=== PATIENT | male | born 1970 | race Caucasian/White ===

== ENCOUNTER 2020-10-13 18:34 | Inpatient (IN) | payer OTHER, SELFPAY ==
[~2020-10-13] VITALS: Ht 165.1 cm; Wt 69.9 kg
[2020-10-13 19:14] VITALS: BP 124/62
[2020-10-13] MEDS ORDERED: NACL 0.9% 1,000 ML IV SCH (20:20)
[2020-10-13] MEDS ORDERED: VANCOMYCIN 1,000 MG in DEXTROSE 5% 250 ML IV ONE (20:20)
[2020-10-13 20:48] LABS: HEMATOCRIT 37.2 % (36-52); HEMOGLOBIN 12.4 g/dL (12.0-18.0); MEAN CORPUSCULAR HEMOGLOBIN 28 pg (27-31); MEAN CORPUSCULAR HGB CONC 33 g/dL (33-37); MEAN CORPUSCULAR VOLUME 83.4 fL (80-94); PLATELET COUNT (AUTO) 464 K/uL (140-450); RED BLOOD CELL COUNT(AUTO) 4.46 MIL/uL (4.20-6.10); RED CELL DISTRIBUTION WIDTH 13.1 % (11.6-13.7)
[2020-10-13] MEDS ORDERED: VANCOMYCIN 1,000 MG VIAL ONE (20:57)
[2020-10-13 21:00] LABS: PROTHROMBIN TIME 12.2 secs (10.8-13.4)
[2020-10-13 21:02] LABS: ALBUMIN 1.8 g/dL (3.4-5.0); ANION GAP 9.9 (8-16); CARBON DIOXIDE 28.2 mmol/L (21-32); CREATININE 1.5 mg/dL (0.6-1.3); POTASSIUM 5.1 mmol/L (3.5-5.1); TOTAL BILIRUBIN 0.8 mg/dL (0.0-1.0)
[2020-10-13 21:12] LABS: LYMPHOCYTES % (MANUAL) 3 % (20-46)
[2020-10-13] MEDS ORDERED: PIPERACILLIN/TAZOBACTAM 3.375 GM in DEXTROSE 5% 50 ML IV ONE (21:25)
[2020-10-13] MEDS ORDERED: INSULIN REGULAR, HUMAN 100 UNIT/ML VIAL SUBQ ONE (21:25)
[2020-10-13] MEDS ORDERED: PIPERACILLIN/TAZOBACTAM 3.375 GM VIAL IV ONE (21:47)
[2020-10-13] MEDS: DEXT 5% / NACL 0.45% 1,000 ML IV SCH (23:13)
[2020-10-13] MEDS: MORPHINE SULFATE 2 MG/ML SYR IVP PRN (23:15)
[2020-10-14 00:09] LABS: APPEARANCE,URINE CLEAR (CLEAR); BILIRUBIN,URINE NEGATIVE (NEGATIVE); BLOOD, URINE TRACE-I (NEGATIVE); COLOR,URINE YELLOW (YELLOW); LEUKOCYTE ESTERASE ,URINE NEGATIVE (NEGATIVE); NITRITE, URINE NEGATIVE (NEGATIVE); UGLUCOSE 3+ (NEGATIVE)
[2020-10-14 00:24] LABS: RBC,URINE 0-5 /HPF (0-5); WBC,URINE 0-5 /HPF (0-5)
[2020-10-14 00:30] VITALS: BP 140/79
[2020-10-14] MEDS ORDERED: ONDANSETRON 4 MG/2 ML VIAL IVP PRN ×2 (00:55→08:15)
[2020-10-14] MEDS ORDERED: ACETAMINOPHEN 325 MG TAB PO PRN (01:15)
[2020-10-14] MEDS ORDERED: ZOLPIDEM 5 MG TAB PO PRN (01:15)
[2020-10-14 04:00] VITALS: BP 141/75
[2020-10-14] MEDS ORDERED: DEXTROSE 50% 50 ML SYR IVP PRN (06:45)
[2020-10-14] MEDS: BLOOD GLUCOSE MONITORING 1 DEV DEV FS SCH ×4 (07:31→20:29)
[2020-10-14] MEDS: INSULIN LISPRO SLIDING SCALE 100 UNITS/ML VIAL SUBQ PRN ×4 (07:32→20:42)
[2020-10-14 08:00] VITALS: BP 128/74
[2020-10-14] MEDS ORDERED: LORazepam 2 MG/ML VIAL IM/IVP PRN (08:15)
[2020-10-14] MEDS ORDERED: DOCUSATE SODIUM 100 MG GELCAP PO PRN (08:15)
[2020-10-14] MEDS ORDERED: VANCOMYCIN PER PHARMACY MC PRN (08:20)
[2020-10-14] MEDS: VANCOMYCIN 750 MG in DEXTROSE 5% 250 ML IV SCH ×2 (09:00→20:23)
[2020-10-14] MEDS: DEXT 5% / NACL 0.45% 1,000 ML IV SCH (09:12)
[2020-10-14] MEDS: NACL 0.9% 1,000 ML IV SCH ×2 (10:23→20:00)
[2020-10-14 10:24] LABS: HEMATOCRIT 38.1 % (36-52); HEMOGLOBIN 12.7 g/dL (12.0-18.0); MEAN CORPUSCULAR HEMOGLOBIN 28 pg (27-31); MEAN CORPUSCULAR HGB CONC 33 g/dL (33-37); MEAN CORPUSCULAR VOLUME 82.5 fL (80-94); PLATELET COUNT (AUTO) 449 K/uL (140-450); RED BLOOD CELL COUNT(AUTO) 4.62 MIL/uL (4.20-6.10)
[2020-10-14 10:32] LABS: PROTHROMBIN TIME 12.1 secs (10.8-13.4)
[2020-10-14 10:39] LABS: ALBUMIN 1.6 g/dL (3.4-5.0); ANION GAP 13.1 (8-16); CARBON DIOXIDE 25.8 mmol/L (21-32); CREATININE 1.2 mg/dL (0.6-1.3); POTASSIUM 3.9 mmol/L (3.5-5.1); TOTAL BILIRUBIN 1.2 mg/dL (0.0-1.0)
[2020-10-14 10:46] LABS: CHOL/HDL RATIO 3.3 (1-4.5); FREE T4 (FREE THYROXINE) 1.43 ng/dL (0.76-1.46); MAGNESIUM 2.1 mg/dL (1.8-2.4); THYROID STIMULATING HORMONE 0.68 uIU/mL (0.34-3.74)
[2020-10-14 11:16] LABS: LYMPHOCYTES % (MANUAL) 1 % (20-46); MONOCYTES % (MANUAL) 2 % (5-12)
[2020-10-14 12:00] VITALS: BP 102/56
[2020-10-14] MEDS: PIPERACILLIN/TAZOBACTAM 3.375 GM in DEXTROSE 5% 50 ML IV SCH ×2 (12:42→21:53)
[2020-10-14] MEDS: ACETAMINOPHEN 325 MG TAB PO PRN ×2 (12:55→23:42)
[2020-10-14 15:58] LABS: ANION GAP 7.8 (8-16); CARBON DIOXIDE 25.1 mmol/L (21-32); POTASSIUM 3.9 mmol/L (3.5-5.1)
[2020-10-14 16:00] VITALS: BP 121/67
[2020-10-14 20:00] VITALS: BP 129/65
[2020-10-14] MEDS: ZOLPIDEM 5 MG TAB PO PRN (23:42)
[2020-10-15] VITALS: BP 144/80
[2020-10-15] MEDS: NACL 0.9% 1,000 ML IV SCH ×2 (00:39→16:02)
[2020-10-15 04:00] VITALS: BP 134/70
[2020-10-15] MEDS: PIPERACILLIN/TAZOBACTAM 3.375 GM in DEXTROSE 5% 50 ML IV SCH ×3 (04:56→21:14)
[2020-10-15 05:43] LABS: HEMATOCRIT 34.1 % (36-52); HEMOGLOBIN 11.4 g/dL (12.0-18.0); MEAN CORPUSCULAR HEMOGLOBIN 28 pg (27-31); MEAN CORPUSCULAR HGB CONC 33 g/dL (33-37); MEAN CORPUSCULAR VOLUME 83.6 fL (80-94); PLATELET COUNT (AUTO) 455 K/uL (140-450); RED BLOOD CELL COUNT(AUTO) 4.08 MIL/uL (4.20-6.10); RED CELL DISTRIBUTION WIDTH 13.3 % (11.6-13.7)
[2020-10-15 06:01] LABS: CREATININE 1.1 mg/dL (0.6-1.3); POTASSIUM 4.3 mmol/L (3.5-5.1)
[2020-10-15] MEDS: BLOOD GLUCOSE MONITORING 1 DEV DEV FS SCH ×4 (06:11→21:14)
[2020-10-15 06:13] LABS: MAGNESIUM 1.9 mg/dL (1.8-2.4); PHOSPHORUS 2.6 mg/dL (2.5-4.9)
[2020-10-15] MEDS: INSULIN LISPRO SLIDING SCALE 100 UNITS/ML VIAL SUBQ PRN ×4 (06:21→21:31)
[2020-10-15 06:46] LABS: CARBON DIOXIDE 23.9 mmol/L (21-32)
[2020-10-15 06:50] LABS: ANION GAP 11.4 (8-16)
[2020-10-15 08:00] VITALS: BP 103/48
[2020-10-15] MEDS: VANCOMYCIN 750 MG in DEXTROSE 5% 250 ML IV SCH ×3 (08:17→21:18)
[2020-10-15 08:32] LABS: WHITE BLOOD COUNT (AUTO) 27.8 K/uL (4.8-10.8)
[2020-10-15 08:33] LABS: LYMPHOCYTES % (MANUAL) 4 % (20-46); MONOCYTES % (MANUAL) 5 % (5-12)
[2020-10-15] MEDS ORDERED: HYDROGEN PEROXIDE 3% 240 ML BTL TP ONE (08:59)
[2020-10-15] MEDS ORDERED: SEVOFLURANE 250 ML BTL INH ONE (09:10)
[2020-10-15 09:18] LABS: BARBITURATE, URINE NEGATIVE ng/ml (NEG <=200); BENZODIAZEPINE, URINE NEGATIVE ng/mL (NEG <=200); CANNABINOID, URINE NEGATIVE ng/mL (NEG <=50); COCAINE, URINE NEGATIVE ng/mL (NEG <=300); OPIATE, URINE POSITIVE ng/mL (NEG <=2000); PHENCYCLIDINE SCREEN,URINE NEGATIVE ng/mL (NEG <=25)
[2020-10-15] MEDS ORDERED: fentaNYL citrate 0.05 MG/ML VIAL ONE (09:21)
[2020-10-15] MEDS ORDERED: MIDAZOLAM 2 MG/2 ML VIAL ONE (09:21)
[2020-10-15] MEDS ORDERED: PROPOFOL 200 MG/20 ML VIAL IV ONE (09:30)
[2020-10-15] MEDS ORDERED: DEXAMETHASONE 4 MG/ML VIAL ONE (09:32)
[2020-10-15] MEDS ORDERED: ONDANSETRON 4 MG/2 ML VIAL ONE (09:32)
[2020-10-15] MEDS ORDERED: MEPERIDINE 50 MG/ML SYR ONE (09:33)
[2020-10-15] MEDS ORDERED: BLOOD GLUCOSE MONITORING 1 DEV DEV FS SCH (09:50)
[2020-10-15] MEDS: LACTATED RINGERS 1,000 ML IV SCH ×2 (09:50→18:10)
[2020-10-15] MEDS ORDERED: HYDROmorphone 1 MG/ML AMP IVP PRN (09:50)
[2020-10-15] MEDS ORDERED: ONDANSETRON 4 MG/2 ML VIAL IVP PRN (09:50)
[2020-10-15] MEDS ORDERED: diphenhydrAMINE 50 MG/ML VIAL IVP PRN (09:50)
[2020-10-15] MEDS ORDERED: MEPERIDINE 25 MG/ML SYR IVP PRN (09:50)
[2020-10-15 12:00] VITALS: BP 135/78
[2020-10-15 13:05] LABS: BASOPHILS % (AUTO) 0.2 % (0.0-2.0); EOSINOPHILS % (AUTO) 0.1 % (0.0-4.0); HEMATOCRIT 34.8 % (36-52); HEMOGLOBIN 11.5 g/dL (12.0-18.0); LYMPHOCYTES # (AUTO) 0.4 K/uL (2.0-11.5); LYMPHOCYTES % (AUTO) 1.6 % (20.5-51.1); MEAN CORPUSCULAR HEMOGLOBIN 28 pg (27-31); MEAN CORPUSCULAR HGB CONC 33 g/dL (33-37); MEAN CORPUSCULAR VOLUME 83.4 fL (80-94); MONOCYTES # (AUTO) 0.5 K/uL (0.8-1.0); NEUTROPHILS # (AUTO) 24.8 K/uL (1.8-7.7); NEUTROPHILS % (AUTO) 96.1 % (42.2-75.2); PLATELET COUNT (AUTO) 455 K/uL (140-450); RED BLOOD CELL COUNT(AUTO) 4.17 MIL/uL (4.20-6.10); RED CELL DISTRIBUTION WIDTH 13.6 % (11.6-13.7)
[2020-10-15 13:11] LABS: ANION GAP 10.3 (8-16); CARBON DIOXIDE 25.1 mmol/L (21-32); POTASSIUM 4.4 mmol/L (3.5-5.1)
[2020-10-15 13:26] LABS: WHITE BLOOD COUNT (AUTO) 25.8 K/uL (4.8-10.8)
[2020-10-15 16:00] VITALS: BP 135/84
[2020-10-15 17:03] LABS: URINE TOTAL PROTEIN 210.1 mg/dL (0-12)
[2020-10-15 21:00] VITALS: BP 131/73
[2020-10-15] MEDS: HYDROcodone/APAP 5/325 MG 1 TAB TAB PO PRN (21:37)
[2020-10-15] MEDS: ZOLPIDEM 5 MG TAB PO PRN (23:12)
[2020-10-16 00:30] VITALS: BP 124/68
[2020-10-16] MEDS: NACL 0.9% 1,000 ML IV SCH ×3 (01:35→22:00)
[2020-10-16] MEDS: LACTATED RINGERS 1,000 ML IV SCH (01:36)
[2020-10-16 04:30] VITALS: BP 130/72
[2020-10-16] MEDS: PIPERACILLIN/TAZOBACTAM 3.375 GM in DEXTROSE 5% 50 ML IV SCH ×2 (05:43→12:20)
[2020-10-16 07:29] LABS: BASOPHILS # (AUTO) 0.1 K/uL (0.00-0.22); BASOPHILS % (AUTO) 0.3 % (0.0-2.0); HEMATOCRIT 35.5 % (36-52); HEMOGLOBIN 11.7 g/dL (12.0-18.0); LYMPHOCYTES # (AUTO) 1.2 K/uL (2.0-11.5); MEAN CORPUSCULAR HEMOGLOBIN 28 pg (27-31); MEAN CORPUSCULAR HGB CONC 33 g/dL (33-37); MEAN CORPUSCULAR VOLUME 84.8 fL (80-94); MONOCYTES % (AUTO) 4.7 % (1.7-9.3); NEUTROPHILS # (AUTO) 18.4 K/uL (1.8-7.7); PLATELET COUNT (AUTO) 448 K/uL (140-450); RED BLOOD CELL COUNT(AUTO) 4.18 MIL/uL (4.20-6.10); RED CELL DISTRIBUTION WIDTH 13.3 % (11.6-13.7); WHITE BLOOD COUNT (AUTO) 20.6 K/uL (4.8-10.8)
[2020-10-16 07:44] LABS: ANION GAP 11.7 (8-16); CARBON DIOXIDE 22.9 mmol/L (21-32); POTASSIUM 4.6 mmol/L (3.5-5.1)
[2020-10-16] MEDS: BLOOD GLUCOSE MONITORING 1 DEV DEV FS SCH ×4 (07:47→21:53)
[2020-10-16] MEDS: INSULIN LISPRO SLIDING SCALE 100 UNITS/ML VIAL SUBQ PRN ×4 (07:51→21:57)
[2020-10-16 07:54] LABS: MAGNESIUM 1.9 mg/dL (1.8-2.4); PHOSPHORUS 2.6 mg/dL (2.5-4.9)
[2020-10-16 08:00] VITALS: BP 127/76
[2020-10-16] MEDS: VANCOMYCIN 750 MG in DEXTROSE 5% 250 ML IV SCH (09:22)
[2020-10-16] MEDS: MORPHINE SULFATE 2 MG/ML SYR IVP PRN ×2 (10:50→15:01)
[2020-10-16 16:00] VITALS: BP 129/77
[2020-10-16] MEDS ORDERED: VANCOMYCIN 1,000 MG in DEXTROSE 5% 250 ML IV SCH (21:00)
[2020-10-16] MEDS: INSULIN LANTUS 100 UNITS/ML 10 ML VIAL SUBQ SCH (21:59)
[2020-10-16] MEDS: HYDROcodone/APAP 5/325 MG 1 TAB TAB PO PRN (23:20)
[2020-10-16] MEDS: ZOLPIDEM 5 MG TAB PO PRN (23:21)
[2020-10-16] MEDS: BENZONATATE 100 MG CAPLF PO PRN (23:21)
[2020-10-17] MEDS: PIPERACILLIN/TAZOBACTAM 3.375 GM in DEXTROSE 5% 50 ML IV SCH ×3 (03:41→13:00)
[2020-10-17] MEDS: VANCOMYCIN 1,000 MG in NACL 0.9% 250 ML IV SCH ×2 (03:46→09:18)
[2020-10-17 04:00] VITALS: BP 130/76
[2020-10-17 05:55] LABS: BASOPHILS # (AUTO) 0.1 K/uL (0.00-0.22); BASOPHILS % (AUTO) 0.7 % (0.0-2.0); EOSINOPHILS # (AUTO) 0.1 K/uL (0-0.4); EOSINOPHILS % (AUTO) 0.8 % (0.0-4.0); HEMATOCRIT 32.2 % (36-52); HEMOGLOBIN 10.8 g/dL (12.0-18.0); LYMPHOCYTES # (AUTO) 1.7 K/uL (2.0-11.5); LYMPHOCYTES % (AUTO) 13.1 % (20.5-51.1); MEAN CORPUSCULAR HEMOGLOBIN 28 pg (27-31); MEAN CORPUSCULAR HGB CONC 33 g/dL (33-37); MEAN CORPUSCULAR VOLUME 83.4 fL (80-94); MONOCYTES # (AUTO) 1.2 K/uL (0.8-1.0); MONOCYTES % (AUTO) 9.1 % (1.7-9.3); NEUTROPHILS # (AUTO) 10.2 K/uL (1.8-7.7); NEUTROPHILS % (AUTO) 76.3 % (42.2-75.2); PLATELET COUNT (AUTO) 456 K/uL (140-450); RED BLOOD CELL COUNT(AUTO) 3.86 MIL/uL (4.20-6.10); RED CELL DISTRIBUTION WIDTH 13.1 % (11.6-13.7); WHITE BLOOD COUNT (AUTO) 13.4 K/uL (4.8-10.8)
[2020-10-17 06:20] LABS: ANION GAP 10.4 (8-16); CARBON DIOXIDE 23.7 mmol/L (21-32); CREATININE 0.9 mg/dL (0.6-1.3); POTASSIUM 4.1 mmol/L (3.5-5.1)
[2020-10-17] MEDS: INSULIN LISPRO SLIDING SCALE 100 UNITS/ML VIAL SUBQ PRN ×3 (07:25→17:40)
[2020-10-17] MEDS: BLOOD GLUCOSE MONITORING 1 DEV DEV FS SCH ×4 (07:25→21:00)
[2020-10-17 08:00] VITALS: BP 131/78
[2020-10-17] MEDS: NACL 0.9% 1,000 ML IV SCH ×2 (08:00→17:41)
[2020-10-17] MEDS: BENZONATATE 100 MG CAPLF PO PRN (09:21)
[2020-10-17] MEDS: HYDROcodone/APAP 5/325 MG 1 TAB TAB PO PRN (13:09)
[2020-10-17 20:00] VITALS: BP 129/69
[2020-10-17] MEDS: INSULIN LANTUS 100 UNITS/ML 10 ML VIAL SUBQ SCH (21:00)
[2020-10-17] MEDS: ZOLPIDEM 5 MG TAB PO PRN (21:48)
[2020-10-17] MEDS: MORPHINE SULFATE 2 MG/ML SYR IVP PRN (21:51)
[2020-10-18] MEDS: BLOOD GLUCOSE MONITORING 1 DEV DEV FS SCH ×4 (00:33→21:01)
[2020-10-18] MEDS: NACL 0.9% 1,000 ML IV SCH ×2 (01:35→14:00)
[2020-10-18] MEDS: MORPHINE SULFATE 2 MG/ML SYR IVP PRN (04:48)
[2020-10-18 05:08] VITALS: BP 131/74
[2020-10-18] MEDS: PIPERACILLIN/TAZOBACTAM 3.375 GM in DEXTROSE 5% 50 ML IV SCH ×6 (06:21→23:14)
[2020-10-18 08:00] VITALS: BP 142/75
[2020-10-18 08:43] LABS: BASOPHILS # (AUTO) 0.1 K/uL (0.00-0.22); EOSINOPHILS # (AUTO) 0.1 K/uL (0-0.4); EOSINOPHILS % (AUTO) 1.1 % (0.0-4.0); HEMATOCRIT 32.1 % (36-52); HEMOGLOBIN 10.8 g/dL (12.0-18.0); LYMPHOCYTES # (AUTO) 1.6 K/uL (2.0-11.5); LYMPHOCYTES % (AUTO) 12.4 % (20.5-51.1); MEAN CORPUSCULAR HEMOGLOBIN 28 pg (27-31); MEAN CORPUSCULAR HGB CONC 34 g/dL (33-37); MONOCYTES # (AUTO) 1.1 K/uL (0.8-1.0); MONOCYTES % (AUTO) 8.5 % (1.7-9.3); NEUTROPHILS # (AUTO) 9.8 K/uL (1.8-7.7); PLATELET COUNT (AUTO) 454 K/uL (140-450); RED BLOOD CELL COUNT(AUTO) 3.87 MIL/uL (4.20-6.10); RED CELL DISTRIBUTION WIDTH 13.2 % (11.6-13.7); WHITE BLOOD COUNT (AUTO) 12.7 K/uL (4.8-10.8)
[2020-10-18 08:46] LABS: ANION GAP 10.4 (8-16); CARBON DIOXIDE 25.3 mmol/L (21-32); CREATININE 0.8 mg/dL (0.6-1.3); POTASSIUM 3.7 mmol/L (3.5-5.1)
[2020-10-18] MEDS: guaiFENesin DM 200/20 MG-10 ML 10 ML UDC PO PRN ×2 (12:22→20:58)
[2020-10-18] MEDS: INSULIN LISPRO SLIDING SCALE 100 UNITS/ML VIAL SUBQ PRN (12:40)
[2020-10-18 20:00] VITALS: BP 142/72
[2020-10-18] MEDS: HYDROcodone/APAP 5/325 MG 1 TAB TAB PO PRN (20:58)
[2020-10-18] MEDS: INSULIN LANTUS 100 UNITS/ML 10 ML VIAL SUBQ SCH (21:00)
[2020-10-18] MEDS: ZOLPIDEM 5 MG TAB PO PRN (23:14)
[2020-10-19 04:00] VITALS: BP 155/82
[2020-10-19] MEDS: NACL 0.9% 1,000 ML IV SCH ×4 (04:00→16:41)
[2020-10-19] MEDS: PIPERACILLIN/TAZOBACTAM 3.375 GM in DEXTROSE 5% 50 ML IV SCH ×4 (06:07→23:48)
[2020-10-19] MEDS: BLOOD GLUCOSE MONITORING 1 DEV DEV FS SCH ×4 (06:36→20:39)
[2020-10-19 06:41] LABS: BASOPHILS # (AUTO) 0.2 K/uL (0.00-0.22); BASOPHILS % (AUTO) 1.2 % (0.0-2.0); EOSINOPHILS # (AUTO) 0.2 K/uL (0-0.4); EOSINOPHILS % (AUTO) 1.4 % (0.0-4.0); HEMATOCRIT 31.5 % (36-52); HEMOGLOBIN 10.8 g/dL (12.0-18.0); LYMPHOCYTES # (AUTO) 1.5 K/uL (2.0-11.5); LYMPHOCYTES % (AUTO) 11.5 % (20.5-51.1); MEAN CORPUSCULAR HEMOGLOBIN 28 pg (27-31); MEAN CORPUSCULAR HGB CONC 34 g/dL (33-37); MEAN CORPUSCULAR VOLUME 82.1 fL (80-94); MONOCYTES # (AUTO) 0.9 K/uL (0.8-1.0); MONOCYTES % (AUTO) 6.8 % (1.7-9.3); NEUTROPHILS % (AUTO) 79.1 % (42.2-75.2); PLATELET COUNT (AUTO) 468 K/uL (140-450); RED BLOOD CELL COUNT(AUTO) 3.83 MIL/uL (4.20-6.10); RED CELL DISTRIBUTION WIDTH 13.1 % (11.6-13.7); WHITE BLOOD COUNT (AUTO) 12.7 K/uL (4.8-10.8)
[2020-10-19 06:58] LABS: ANION GAP 11.9 (8-16); CARBON DIOXIDE 24.9 mmol/L (21-32); CREATININE 0.9 mg/dL (0.6-1.3); POTASSIUM 3.8 mmol/L (3.5-5.1)
[2020-10-19 08:00] VITALS: BP 146/75
[2020-10-19] MEDS: guaiFENesin DM 200/20 MG-10 ML 10 ML UDC PO PRN ×3 (10:28→22:51)
[2020-10-19] MEDS: INSULIN LISPRO SLIDING SCALE 100 UNITS/ML VIAL SUBQ PRN ×3 (12:59→20:38)
[2020-10-19] MEDS: GAUZE TP SCH (13:00)
[2020-10-19 16:00] VITALS: BP 146/75
[2020-10-19] MEDS: HYDROcodone/APAP 5/325 MG 1 TAB TAB PO PRN ×2 (16:32→22:48)
[2020-10-19] MEDS: ACETAMINOPHEN 325 MG TAB PO PRN (18:25)
[2020-10-19 20:00] VITALS: BP 119/68
[2020-10-19] MEDS: INSULIN LANTUS 100 UNITS/ML 10 ML VIAL SUBQ SCH (20:38)
[2020-10-19] MEDS: ZOLPIDEM 5 MG TAB PO PRN (22:49)
[2020-10-20 04:00] VITALS: BP 142/78
[2020-10-20] MEDS: PIPERACILLIN/TAZOBACTAM 3.375 GM in DEXTROSE 5% 50 ML IV SCH ×3 (05:29→17:38)
[2020-10-20] MEDS: BLOOD GLUCOSE MONITORING 1 DEV DEV FS SCH ×4 (05:42→20:03)
[2020-10-20] MEDS: NACL 0.9% 1,000 ML IV SCH ×2 (05:43→16:00)
[2020-10-20 08:00] VITALS: BP 130/78
[2020-10-20] MEDS: guaiFENesin DM 200/20 MG-10 ML 10 ML UDC PO PRN ×2 (09:27→17:44)
[2020-10-20] MEDS: GAUZE TP SCH (13:00)
[2020-10-20 20:00] VITALS: BP 158/87
[2020-10-20] MEDS: ACETAMINOPHEN 325 MG TAB PO PRN (20:05)
[2020-10-20] MEDS: INSULIN LISPRO SLIDING SCALE 100 UNITS/ML VIAL SUBQ PRN (20:06)
[2020-10-20] MEDS: INSULIN LANTUS 100 UNITS/ML 10 ML VIAL SUBQ SCH (20:09)
[2020-10-20] MEDS ORDERED: VANCOMYCIN PER PHARMACY MC PRN (20:45)
[2020-10-20] MEDS ORDERED: VANCOMYCIN 1GM/DEXT 5% PREMIX 200 ML IV SCH (21:30)
[2020-10-21] MEDS ORDERED: VANCOMYCIN 1,000 MG VIAL ONE (00:06)
[2020-10-21] MEDS: PIPERACILLIN/TAZOBACTAM 3.375 GM in DEXTROSE 5% 50 ML IV SCH ×4 (00:10→18:52)
[2020-10-21] MEDS: NACL 0.9% 1,000 ML IV SCH ×3 (02:00→22:03)
[2020-10-21 04:00] VITALS: BP 149/87
[2020-10-21 07:12] LABS: ALBUMIN 1.3 g/dL (3.4-5.0); CARBON DIOXIDE 26.5 mmol/L (21-32); CREATININE 0.9 mg/dL (0.6-1.3); POTASSIUM 3.5 mmol/L (3.5-5.1); TOTAL BILIRUBIN 0.6 mg/dL (0.0-1.0)
[2020-10-21] MEDS: BLOOD GLUCOSE MONITORING 1 DEV DEV FS SCH ×4 (07:46→21:00)
[2020-10-21] MEDS ORDERED: LIDOCAINE 1% 500 MG/50 ML VIAL ONE (08:52)
[2020-10-21] MEDS ORDERED: BUPIVACAINE-MPF 0.25% 30 ML VIAL INJ ONE (08:52)
[2020-10-21] MEDS ORDERED: MAGNESIUM SULFATE 50% 1000 MG/2 ML VIAL IV ONE (09:30)
[2020-10-21] MEDS ORDERED: KETAMINE 500 MG/5 ML VIAL ONE (09:35)
[2020-10-21] MEDS: VANCOMYCIN 1,000 MG in NACL 0.9% 250 ML IV SCH ×2 (11:00→23:05)
[2020-10-21] MEDS ORDERED: MIDAZOLAM 2 MG/2 ML VIAL ONE (11:08)
[2020-10-21] MEDS ORDERED: ACETAMINOPHEN 100 ML IV ONE (11:14)
[2020-10-21 12:59] VITALS: BP 108/68
[2020-10-21] MEDS: GAUZE TP SCH (13:00)
[2020-10-21] MEDS: MORPHINE SULFATE 2 MG/ML SYR IVP PRN (15:47)
[2020-10-21 20:00] VITALS: BP 144/82
[2020-10-21] MEDS: INSULIN LANTUS 100 UNITS/ML 10 ML VIAL SUBQ SCH (21:00)
[2020-10-21] MEDS: INSULIN LISPRO SLIDING SCALE 100 UNITS/ML VIAL SUBQ PRN (22:02)
[2020-10-21] MEDS: ACETAMINOPHEN 325 MG TAB PO PRN (22:02)
[2020-10-22] MEDS: PIPERACILLIN/TAZOBACTAM 3.375 GM in DEXTROSE 5% 50 ML IV SCH ×4 (00:50→19:00)
[2020-10-22 04:00] VITALS: BP 143/78
[2020-10-22] MEDS: ACETAMINOPHEN 325 MG TAB PO PRN ×2 (05:17→22:03)
[2020-10-22 06:43] LABS: BASOPHILS # (AUTO) 0.1 K/uL (0.00-0.22); BASOPHILS % (AUTO) 1.1 % (0.0-2.0); EOSINOPHILS # (AUTO) 0.1 K/uL (0-0.4); HEMATOCRIT 28.2 % (36-52); HEMOGLOBIN 9.5 g/dL (12.0-18.0); LYMPHOCYTES # (AUTO) 1.2 K/uL (2.0-11.5); LYMPHOCYTES % (AUTO) 9.1 % (20.5-51.1); MEAN CORPUSCULAR HEMOGLOBIN 28 pg (27-31); MEAN CORPUSCULAR HGB CONC 34 g/dL (33-37); MEAN CORPUSCULAR VOLUME 81.9 fL (80-94); MONOCYTES % (AUTO) 7.2 % (1.7-9.3); NEUTROPHILS # (AUTO) 11.1 K/uL (1.8-7.7); NEUTROPHILS % (AUTO) 81.6 % (42.2-75.2); PLATELET COUNT (AUTO) 473 K/uL (140-450); RED BLOOD CELL COUNT(AUTO) 3.44 MIL/uL (4.20-6.10); RED CELL DISTRIBUTION WIDTH 13.1 % (11.6-13.7); WHITE BLOOD COUNT (AUTO) 13.6 K/uL (4.8-10.8)
[2020-10-22] MEDS: BLOOD GLUCOSE MONITORING 1 DEV DEV FS SCH ×4 (06:54→21:00)
[2020-10-22 07:01] LABS: ANION GAP 10.9 (8-16); CARBON DIOXIDE 24.8 mmol/L (21-32); CREATININE 0.8 mg/dL (0.6-1.3); POTASSIUM 3.7 mmol/L (3.5-5.1)
[2020-10-22 07:05] LABS: MAGNESIUM 1.8 mg/dL (1.8-2.4); PHOSPHORUS 2.4 mg/dL (2.5-4.9)
[2020-10-22 08:00] VITALS: BP 118/61
[2020-10-22] MEDS: SODIUM CHLORIDE 1 GM TAB PO SCH ×3 (09:47→18:59)
[2020-10-22] MEDS: VANCOMYCIN HCL 1.25 GM in DEXTROSE 5% 250 ML IV SCH ×2 (11:00→23:03)
[2020-10-22] MEDS: GAUZE TP SCH (13:00)
[2020-10-22] MEDS: INSULIN LISPRO SLIDING SCALE 100 UNITS/ML VIAL SUBQ PRN ×3 (13:21→23:35)
[2020-10-22 16:00] VITALS: BP 111/64
[2020-10-22] MEDS: INSULIN LANTUS 100 UNITS/ML 10 ML VIAL SUBQ SCH (21:00)
[2020-10-23] MEDS: PIPERACILLIN/TAZOBACTAM 3.375 GM in DEXTROSE 5% 50 ML IV SCH ×4 (00:21→18:31)
[2020-10-23 04:13] VITALS: BP 130/77
[2020-10-23] MEDS: BLOOD GLUCOSE MONITORING 1 DEV DEV FS SCH ×4 (06:33→21:00)
[2020-10-23] MEDS: SODIUM CHLORIDE 1 GM TAB PO SCH ×3 (08:43→16:19)
[2020-10-23 09:01] LABS: ANION GAP 10.1 (8-16); CARBON DIOXIDE 25.5 mmol/L (21-32); CREATININE 0.9 mg/dL (0.6-1.3); MAGNESIUM 1.8 mg/dL (1.8-2.4); PHOSPHORUS 2.6 mg/dL (2.5-4.9); POTASSIUM 3.6 mmol/L (3.5-5.1)
[2020-10-23 09:02] LABS: BASOPHILS # (AUTO) 0.2 K/uL (0.00-0.22); BASOPHILS % (AUTO) 0.8 % (0.0-2.0); EOSINOPHILS # (AUTO) 0.2 K/uL (0-0.4); EOSINOPHILS % (AUTO) 0.9 % (0.0-4.0); HEMATOCRIT 28.9 % (36-52); HEMOGLOBIN 9.9 g/dL (12.0-18.0); LYMPHOCYTES # (AUTO) 1.6 K/uL (2.0-11.5); LYMPHOCYTES % (AUTO) 8.4 % (20.5-51.1); MEAN CORPUSCULAR HEMOGLOBIN 28 pg (27-31); MEAN CORPUSCULAR HGB CONC 34 g/dL (33-37); MEAN CORPUSCULAR VOLUME 81.2 fL (80-94); MONOCYTES # (AUTO) 0.9 K/uL (0.8-1.0); MONOCYTES % (AUTO) 4.6 % (1.7-9.3); NEUTROPHILS # (AUTO) 15.9 K/uL (1.8-7.7); NEUTROPHILS % (AUTO) 85.3 % (42.2-75.2); PLATELET COUNT (AUTO) 476 K/uL (140-450); RED BLOOD CELL COUNT(AUTO) 3.56 MIL/uL (4.20-6.10); RED CELL DISTRIBUTION WIDTH 13.1 % (11.6-13.7); WHITE BLOOD COUNT (AUTO) 18.7 K/uL (4.8-10.8)
[2020-10-23 09:10] LABS: THYROID STIMULATING HORMONE 3.22 uIU/mL (0.34-3.74)
[2020-10-23] MEDS: VANCOMYCIN HCL 1.25 GM in DEXTROSE 5% 250 ML IV SCH ×2 (10:46→22:58)
[2020-10-23] MEDS: INSULIN LISPRO SLIDING SCALE 100 UNITS/ML VIAL SUBQ PRN ×3 (11:58→23:52)
[2020-10-23] MEDS: GAUZE TP SCH (13:00)
[2020-10-23] MEDS: BENZONATATE 100 MG CAPLF PO SCH (16:19)
[2020-10-23 20:30] VITALS: BP 135/70
[2020-10-23] MEDS: INSULIN LANTUS 100 UNITS/ML 10 ML VIAL SUBQ SCH (21:00)
[2020-10-24] VITALS: BP_SYST 129
[2020-10-24] MEDS: PIPERACILLIN/TAZOBACTAM 3.375 GM in DEXTROSE 5% 50 ML IV SCH ×4 (00:37→18:46)
[2020-10-24 00:40] VITALS: BP 128/68
[2020-10-24] MEDS: BLOOD GLUCOSE MONITORING 1 DEV DEV FS SCH ×4 (05:55→21:00)
[2020-10-24 07:47] LABS: ANION GAP 9.9 (8-16); CARBON DIOXIDE 26.8 mmol/L (21-32); CREATININE 0.9 mg/dL (0.6-1.3); POTASSIUM 3.7 mmol/L (3.5-5.1)
[2020-10-24 08:02] LABS: BASOPHILS # (AUTO) 0.1 K/uL (0.00-0.22); BASOPHILS % (AUTO) 0.8 % (0.0-2.0); EOSINOPHILS # (AUTO) 0.2 K/uL (0-0.4); EOSINOPHILS % (AUTO) 1.5 % (0.0-4.0); HEMATOCRIT 26.4 % (36-52); LYMPHOCYTES # (AUTO) 1.9 K/uL (2.0-11.5); LYMPHOCYTES % (AUTO) 11.8 % (20.5-51.1); MEAN CORPUSCULAR HEMOGLOBIN 28 pg (27-31); MEAN CORPUSCULAR HGB CONC 34 g/dL (33-37); MEAN CORPUSCULAR VOLUME 81.7 fL (80-94); NEUTROPHILS # (AUTO) 12.7 K/uL (1.8-7.7); NEUTROPHILS % (AUTO) 79.9 % (42.2-75.2); PLATELET COUNT (AUTO) 530 K/uL (140-450); RED BLOOD CELL COUNT(AUTO) 3.24 MIL/uL (4.20-6.10); WHITE BLOOD COUNT (AUTO) 15.9 K/uL (4.8-10.8)
[2020-10-24 08:09] LABS: MAGNESIUM 1.9 mg/dL (1.8-2.4); PHOSPHORUS 3.2 mg/dL (2.5-4.9)
[2020-10-24] MEDS: BENZONATATE 100 MG CAPLF PO SCH ×3 (08:56→16:21)
[2020-10-24] MEDS: SODIUM CHLORIDE 1 GM TAB PO SCH ×3 (08:56→16:21)
[2020-10-24 12:00] VITALS: BP 127/69
[2020-10-24] MEDS: INSULIN LISPRO SLIDING SCALE 100 UNITS/ML VIAL SUBQ PRN ×2 (12:07→16:56)
[2020-10-24] MEDS: GAUZE TP SCH (13:00)
[2020-10-24] MEDS: VANCOMYCIN 1,500 MG in NACL 0.9% 500 ML IV SCH (13:14)
[2020-10-24] MEDS: INSULIN LANTUS 100 UNITS/ML 10 ML VIAL SUBQ SCH (21:00)
[2020-10-24 23:11] VITALS: BP 132/75
[2020-10-25] MEDS: PIPERACILLIN/TAZOBACTAM 3.375 GM in DEXTROSE 5% 50 ML IV SCH ×4 (00:35→23:23)
[2020-10-25] MEDS: ACETAMINOPHEN 325 MG TAB PO PRN ×3 (00:41→23:46)
[2020-10-25] MEDS: VANCOMYCIN 1,500 MG in NACL 0.9% 500 ML IV SCH ×2 (01:00→14:30)
[2020-10-25 04:08] LABS: BASOPHILS # (AUTO) 0.2 K/uL (0.00-0.22); BASOPHILS % (AUTO) 1.3 % (0.0-2.0); EOSINOPHILS # (AUTO) 0.2 K/uL (0-0.4); HEMATOCRIT 26.9 % (36-52); HEMOGLOBIN 9.1 g/dL (12.0-18.0); LYMPHOCYTES # (AUTO) 1.9 K/uL (2.0-11.5); LYMPHOCYTES % (AUTO) 12.3 % (20.5-51.1); MEAN CORPUSCULAR HEMOGLOBIN 27 pg (27-31); MEAN CORPUSCULAR HGB CONC 34 g/dL (33-37); MEAN CORPUSCULAR VOLUME 80.9 fL (80-94); MONOCYTES # (AUTO) 0.9 K/uL (0.8-1.0); MONOCYTES % (AUTO) 6.1 % (1.7-9.3); NEUTROPHILS # (AUTO) 12.4 K/uL (1.8-7.7); NEUTROPHILS % (AUTO) 79.3 % (42.2-75.2); PLATELET COUNT (AUTO) 543 K/uL (140-450); RED BLOOD CELL COUNT(AUTO) 3.33 MIL/uL (4.20-6.10); RED CELL DISTRIBUTION WIDTH 12.8 % (11.6-13.7); WHITE BLOOD COUNT (AUTO) 15.6 K/uL (4.8-10.8)
[2020-10-25 04:10] LABS: ANION GAP 8.9 (8-16); CARBON DIOXIDE 27.1 mmol/L (21-32)
[2020-10-25 06:43] VITALS: BP 120/68
[2020-10-25] MEDS: BLOOD GLUCOSE MONITORING 1 DEV DEV FS SCH ×4 (07:30→21:00)
[2020-10-25 08:00] VITALS: BP_SYST 127; BP_SYST 130; BP_DIAS 68; BP_DIAS 69
[2020-10-25] MEDS: BENZONATATE 100 MG CAPLF PO SCH ×3 (09:00→17:00)
[2020-10-25] MEDS ORDERED: NACL 3% 500 ML IV SCH (10:00)
[2020-10-25] MEDS: GAUZE TP SCH (13:00)
[2020-10-25 16:00] VITALS: BP 129/67
[2020-10-25 16:14] LABS: ANION GAP 8.7 (8-16); CARBON DIOXIDE 26.2 mmol/L (21-32); POTASSIUM 3.9 mmol/L (3.5-5.1)
[2020-10-25] MEDS: INSULIN LISPRO SLIDING SCALE 100 UNITS/ML VIAL SUBQ PRN ×2 (19:18→22:07)
[2020-10-25 20:00] VITALS: BP 113/66
[2020-10-25] MEDS: INSULIN LANTUS 100 UNITS/ML 10 ML VIAL SUBQ SCH (22:06)
[2020-10-25] MEDS ORDERED: PIPERACILLIN/TAZOBACTAM 3.375 GM VIAL IV ONE (23:02)
[2020-10-26] MEDS: VANCOMYCIN 1,500 MG in NACL 0.9% 500 ML IV SCH ×3 (01:33→16:05)
[2020-10-26 04:00] VITALS: BP 113/65
[2020-10-26] MEDS ORDERED: PIPERACILLIN/TAZOBACTAM 3.375 GM VIAL IV ONE (05:06)
[2020-10-26] MEDS: BLOOD GLUCOSE MONITORING 1 DEV DEV FS SCH ×5 (05:27→20:39)
[2020-10-26] MEDS: PIPERACILLIN/TAZOBACTAM 3.375 GM in DEXTROSE 5% 50 ML IV SCH ×3 (05:27→18:49)
[2020-10-26 06:16] LABS: BASOPHILS # (AUTO) 0.1 K/uL (0.00-0.22); BASOPHILS % (AUTO) 1.1 % (0.0-2.0); EOSINOPHILS # (AUTO) 0.2 K/uL (0-0.4); EOSINOPHILS % (AUTO) 1.6 % (0.0-4.0); HEMOGLOBIN 8.4 g/dL (12.0-18.0); LYMPHOCYTES # (AUTO) 1.7 K/uL (2.0-11.5); LYMPHOCYTES % (AUTO) 13.9 % (20.5-51.1); MEAN CORPUSCULAR HEMOGLOBIN 28 pg (27-31); MEAN CORPUSCULAR HGB CONC 34 g/dL (33-37); MEAN CORPUSCULAR VOLUME 82.4 fL (80-94); MONOCYTES # (AUTO) 0.8 K/uL (0.8-1.0); MONOCYTES % (AUTO) 6.7 % (1.7-9.3); NEUTROPHILS # (AUTO) 9.3 K/uL (1.8-7.7); NEUTROPHILS % (AUTO) 76.7 % (42.2-75.2); PLATELET COUNT (AUTO) 581 K/uL (140-450); RED BLOOD CELL COUNT(AUTO) 3.04 MIL/uL (4.20-6.10); WHITE BLOOD COUNT (AUTO) 12.1 K/uL (4.8-10.8)
[2020-10-26 06:50] LABS: CARBON DIOXIDE 25.4 mmol/L (21-32); CREATININE 0.9 mg/dL (0.6-1.3); POTASSIUM 4.4 mmol/L (3.5-5.1)
[2020-10-26 08:00] VITALS: BP 119/69
[2020-10-26] MEDS: BENZONATATE 100 MG CAPLF PO SCH ×3 (09:00→17:00)
[2020-10-26] MEDS ORDERED: LIDOCAINE 1% 500 MG/50 ML VIAL ONE (12:51)
[2020-10-26] MEDS: GAUZE TP SCH (13:00)
[2020-10-26] MEDS ORDERED: MORPHINE PRES FREE 10 MG/10 ML AMP IV ONE (13:26)
[2020-10-26] MEDS ORDERED: fentaNYL citrate 0.05 MG/ML VIAL ONE (13:31)
[2020-10-26] MEDS ORDERED: PROPOFOL 200 MG/20 ML VIAL IV ONE ×2 (14:09→15:24)
[2020-10-26] MEDS ORDERED: MIDAZOLAM 2 MG/2 ML VIAL ONE (14:10)
[2020-10-26] MEDS ORDERED: fentaNYL citrate 0.05 MG/ML VIAL IVP PRN (15:05)
[2020-10-26] MEDS ORDERED: NALOXONE 0.4 MG/ML VIAL IVP PRN ×2 (15:05)
[2020-10-26] MEDS ORDERED: diphenhydrAMINE 50 MG/ML VIAL IVP PRN ×2 (15:05)
[2020-10-26] MEDS ORDERED: ONDANSETRON 4 MG/2 ML VIAL IVP PRN ×2 (15:05)
[2020-10-26] MEDS ORDERED: MEPERIDINE 25 MG/ML SYR IVP PRN (15:05)
[2020-10-26] MEDS ORDERED: METOCLOPRAMIDE 10 MG/2 ML INJ VIAL ONE (15:25)
[2020-10-26] MEDS ORDERED: ONDANSETRON 4 MG/2 ML VIAL ONE (15:25)
[2020-10-26] MEDS ORDERED: LIDOCAINE MPF 2% 100 MG/5 ML VIAL INJ ONE (15:25)
[2020-10-26] MEDS: LACTATED RINGERS 1,000 ML IV SCH ×2 (16:04→20:40)
[2020-10-26 16:45] VITALS: BP 115/68
[2020-10-26] MEDS: SODIUM CHLORIDE 1 GM TAB PO SCH (18:48)
[2020-10-26] MEDS: KETOROLAC 30 MG/ML VIAL IM/IVP SCH (18:48)
[2020-10-26 20:00] VITALS: BP 119/33
[2020-10-26] MEDS: INSULIN LANTUS 100 UNITS/ML 10 ML VIAL SUBQ SCH (20:39)
[2020-10-27] MEDS: KETOROLAC 30 MG/ML VIAL IM/IVP SCH ×4 (00:35→18:00)
[2020-10-27] MEDS: PIPERACILLIN/TAZOBACTAM 3.375 GM in DEXTROSE 5% 50 ML IV SCH ×5 (00:36→23:57)
[2020-10-27] MEDS: LACTATED RINGERS 1,000 ML IV SCH ×2 (00:36→07:45)
[2020-10-27] MEDS: VANCOMYCIN 1,500 MG in NACL 0.9% 500 ML IV SCH ×2 (00:38→13:55)
[2020-10-27 04:00] VITALS: BP 110/65
[2020-10-27] MEDS: BLOOD GLUCOSE MONITORING 1 DEV DEV FS SCH ×4 (05:29→21:00)
[2020-10-27] MEDS: INSULIN LISPRO SLIDING SCALE 100 UNITS/ML VIAL SUBQ PRN ×4 (05:33→23:10)
[2020-10-27] MEDS: ACETAMINOPHEN 325 MG TAB PO PRN (05:34)
[2020-10-27 08:00] VITALS: BP 98/66
[2020-10-27] MEDS: SODIUM CHLORIDE 1 GM TAB PO SCH ×3 (10:15→18:00)
[2020-10-27] MEDS: BENZONATATE 100 MG CAPLF PO SCH ×3 (10:15→18:00)
[2020-10-27] MEDS: GAUZE TP SCH (13:00)
[2020-10-27] MEDS: INSULIN LANTUS 100 UNITS/ML 10 ML VIAL SUBQ SCH (21:00)
[2020-10-28] MEDS: LACTATED RINGERS 1,000 ML IV SCH ×4 (00:25→17:17)
[2020-10-28] MEDS: VANCOMYCIN 1,500 MG in NACL 0.9% 500 ML IV SCH (01:18)
[2020-10-28] MEDS: ACETAMINOPHEN 325 MG TAB PO PRN (04:48)
[2020-10-28] MEDS: PIPERACILLIN/TAZOBACTAM 3.375 GM in DEXTROSE 5% 50 ML IV SCH ×3 (06:14→17:04)
[2020-10-28] MEDS: BLOOD GLUCOSE MONITORING 1 DEV DEV FS SCH ×4 (07:08→22:56)
[2020-10-28 07:44] LABS: ALBUMIN 1.2 g/dL (3.4-5.0); ANION GAP 10.3 (8-16); CARBON DIOXIDE 23.4 mmol/L (21-32); CREATININE 1.1 mg/dL (0.6-1.3); POTASSIUM 3.7 mmol/L (3.5-5.1); TOTAL BILIRUBIN 0.5 mg/dL (0.0-1.0)
[2020-10-28 07:48] LABS: BASOPHILS # (AUTO) 0.1 K/uL (0.00-0.22); BASOPHILS % (AUTO) 1.3 % (0.0-2.0); EOSINOPHILS # (AUTO) 0.1 K/uL (0-0.4); EOSINOPHILS % (AUTO) 1.2 % (0.0-4.0); HEMATOCRIT 21.1 % (36-52); HEMOGLOBIN 7.3 g/dL (12.0-18.0); LYMPHOCYTES # (AUTO) 1.4 K/uL (2.0-11.5); LYMPHOCYTES % (AUTO) 13.6 % (20.5-51.1); MEAN CORPUSCULAR HEMOGLOBIN 29 pg (27-31); MEAN CORPUSCULAR HGB CONC 35 g/dL (33-37); MEAN CORPUSCULAR VOLUME 82.8 fL (80-94); MONOCYTES # (AUTO) 0.8 K/uL (0.8-1.0); MONOCYTES % (AUTO) 7.5 % (1.7-9.3); NEUTROPHILS # (AUTO) 7.7 K/uL (1.8-7.7); NEUTROPHILS % (AUTO) 76.4 % (42.2-75.2); PLATELET COUNT (AUTO) 480 K/uL (140-450); RED BLOOD CELL COUNT(AUTO) 2.54 MIL/uL (4.20-6.10); RED CELL DISTRIBUTION WIDTH 12.9 % (11.6-13.7); WHITE BLOOD COUNT (AUTO) 10.1 K/uL (4.8-10.8)
[2020-10-28 08:00] VITALS: BP 119/69
[2020-10-28] MEDS: SODIUM CHLORIDE 1 GM TAB PO SCH ×3 (09:39→17:03)
[2020-10-28] MEDS: BENZONATATE 100 MG CAPLF PO SCH ×3 (09:40→17:03)
[2020-10-28] MEDS: INSULIN LISPRO SLIDING SCALE 100 UNITS/ML VIAL SUBQ PRN ×3 (12:34→23:01)
[2020-10-28] MEDS: GAUZE TP SCH (13:00)
[2020-10-28 16:00] VITALS: BP 118/70
[2020-10-28] MEDS: ALBUMIN HUMAN 25% 50 ML IV SCH (21:00)
[2020-10-28] MEDS: INSULIN LANTUS 100 UNITS/ML 10 ML VIAL SUBQ SCH (23:01)
[2020-10-29] MEDS: ACETAMINOPHEN 325 MG TAB PO PRN (00:21)
[2020-10-29 00:30] VITALS: BP 134/70
[2020-10-29] MEDS: LACTATED RINGERS 1,000 ML IV SCH ×3 (01:25→18:12)
[2020-10-29] MEDS: ALBUMIN HUMAN 25% 50 ML IV SCH ×2 (05:26→14:12)
[2020-10-29 05:30] VITALS: BP 111/69
[2020-10-29] MEDS: BLOOD GLUCOSE MONITORING 1 DEV DEV FS SCH ×4 (07:00→20:30)
[2020-10-29 08:00] VITALS: BP 105/56
[2020-10-29 08:54] LABS: ANION GAP 8.9 (8-16); CARBON DIOXIDE 26.7 mmol/L (21-32); POTASSIUM 3.6 mmol/L (3.5-5.1)
[2020-10-29 08:55] LABS: ALBUMIN 1.6 g/dL (3.4-5.0); CREATININE 0.9 mg/dL (0.6-1.3); TOTAL BILIRUBIN 0.4 mg/dL (0.0-1.0)
[2020-10-29] MEDS: BENZONATATE 100 MG CAPLF PO SCH ×3 (09:09→17:51)
[2020-10-29] MEDS: SODIUM CHLORIDE 1 GM TAB PO SCH ×3 (09:09→17:51)
[2020-10-29] MEDS: GAUZE TP SCH (14:00)
[2020-10-29] MEDS: HYDROcodone/APAP 10/325 MG 1 TAB TAB PO PRN (14:53)
[2020-10-29 16:00] VITALS: BP 121/65
[2020-10-29] MEDS: INSULIN LISPRO SLIDING SCALE 100 UNITS/ML VIAL SUBQ PRN (17:52)
[2020-10-29 20:00] VITALS: BP 126/72
[2020-10-29] MEDS: INSULIN LANTUS 100 UNITS/ML 10 ML VIAL SUBQ SCH (20:30)
[2020-10-30] MEDS: LACTATED RINGERS 1,000 ML IV SCH ×3 (02:27→21:30)
[2020-10-30 04:00] VITALS: BP 145/79
[2020-10-30] MEDS: BLOOD GLUCOSE MONITORING 1 DEV DEV FS SCH ×4 (06:44→21:39)
[2020-10-30 07:53] LABS: BASOPHILS # (AUTO) 0.1 K/uL (0.00-0.22); BASOPHILS % (AUTO) 1.8 % (0.0-2.0); EOSINOPHILS # (AUTO) 0.1 K/uL (0-0.4); EOSINOPHILS % (AUTO) 1.8 % (0.0-4.0); HEMATOCRIT 20.8 % (36-52); HEMOGLOBIN 7.4 g/dL (12.0-18.0); LYMPHOCYTES # (AUTO) 1.3 K/uL (2.0-11.5); LYMPHOCYTES % (AUTO) 19.2 % (20.5-51.1); MEAN CORPUSCULAR HEMOGLOBIN 31 pg (27-31); MEAN CORPUSCULAR HGB CONC 36 g/dL (33-37); MEAN CORPUSCULAR VOLUME 88.6 fL (80-94); MONOCYTES # (AUTO) 0.4 K/uL (0.8-1.0); MONOCYTES % (AUTO) 6.2 % (1.7-9.3); NEUTROPHILS # (AUTO) 4.8 K/uL (1.8-7.7); PLATELET COUNT (AUTO) 501 K/uL (140-450); RED BLOOD CELL COUNT(AUTO) 2.35 MIL/uL (4.20-6.10); WHITE BLOOD COUNT (AUTO) 6.7 K/uL (4.8-10.8)
[2020-10-30 08:00] VITALS: BP 134/76
[2020-10-30 08:28] LABS: ALBUMIN 1.6 g/dL (3.4-5.0); ANION GAP 9.7 (8-16); CARBON DIOXIDE 26.7 mmol/L (21-32); CREATININE 0.8 mg/dL (0.6-1.3); POTASSIUM 3.4 mmol/L (3.5-5.1); TOTAL BILIRUBIN 0.4 mg/dL (0.0-1.0)
[2020-10-30] MEDS: SODIUM CHLORIDE 1 GM TAB PO SCH ×3 (08:46→17:33)
[2020-10-30] MEDS: BENZONATATE 100 MG CAPLF PO SCH ×3 (08:46→17:33)
[2020-10-30] MEDS: GAUZE TP SCH (12:18)
[2020-10-30 16:00] VITALS: BP 141/76
[2020-10-30] MEDS: INSULIN LISPRO SLIDING SCALE 100 UNITS/ML VIAL SUBQ PRN ×2 (17:40→21:38)
[2020-10-30] MEDS: INSULIN LANTUS 100 UNITS/ML 10 ML VIAL SUBQ SCH (21:36)
[2020-10-31] VITALS: BP_SYST 133; BP_SYST 138; BP_DIAS 70
[2020-10-31] MEDS: LACTATED RINGERS 1,000 ML IV SCH ×3 (03:25→20:05)
[2020-10-31] MEDS: BLOOD GLUCOSE MONITORING 1 DEV DEV FS SCH ×4 (06:36→21:09)
[2020-10-31 07:57] LABS: BASOPHILS # (AUTO) 0.1 K/uL (0.00-0.22); BASOPHILS % (AUTO) 1.7 % (0.0-2.0); EOSINOPHILS # (AUTO) 0.1 K/uL (0-0.4); EOSINOPHILS % (AUTO) 1.8 % (0.0-4.0); HEMATOCRIT 21.2 % (36-52); HEMOGLOBIN 7.5 g/dL (12.0-18.0); LYMPHOCYTES # (AUTO) 1.3 K/uL (2.0-11.5); LYMPHOCYTES % (AUTO) 18.4 % (20.5-51.1); MEAN CORPUSCULAR HEMOGLOBIN 31 pg (27-31); MEAN CORPUSCULAR HGB CONC 35 g/dL (33-37); MEAN CORPUSCULAR VOLUME 88.1 fL (80-94); MONOCYTES # (AUTO) 0.4 K/uL (0.8-1.0); MONOCYTES % (AUTO) 6.5 % (1.7-9.3); NEUTROPHILS # (AUTO) 4.9 K/uL (1.8-7.7); NEUTROPHILS % (AUTO) 71.6 % (42.2-75.2); PLATELET COUNT (AUTO) 545 K/uL (140-450); RED BLOOD CELL COUNT(AUTO) 2.41 MIL/uL (4.20-6.10); WHITE BLOOD COUNT (AUTO) 6.8 K/uL (4.8-10.8)
[2020-10-31 08:00] VITALS: BP 133/73
[2020-10-31 08:23] LABS: CARBON DIOXIDE 27.5 mmol/L (21-32); CREATININE 0.8 mg/dL (0.6-1.3); POTASSIUM 3.5 mmol/L (3.5-5.1)
[2020-10-31 08:27] LABS: ALBUMIN 1.5 g/dL (3.4-5.0); ANION GAP 7.4 (8-16); CARBON DIOXIDE 28.1 mmol/L (21-32); CREATININE 0.9 mg/dL (0.6-1.3); POTASSIUM 3.5 mmol/L (3.5-5.1); TOTAL BILIRUBIN 0.3 mg/dL (0.0-1.0)
[2020-10-31 08:33] LABS: MAGNESIUM 1.9 mg/dL (1.8-2.4); PHOSPHORUS 2.9 mg/dL (2.5-4.9)
[2020-10-31] MEDS: BENZONATATE 100 MG CAPLF PO SCH ×3 (10:12→17:01)
[2020-10-31] MEDS: SODIUM CHLORIDE 1 GM TAB PO SCH ×3 (10:12→17:01)
[2020-10-31] MEDS: INSULIN LISPRO SLIDING SCALE 100 UNITS/ML VIAL SUBQ PRN ×3 (12:30→21:11)
[2020-10-31] MEDS: GAUZE TP SCH (12:36)
[2020-10-31 16:00] VITALS: BP 150/89
[2020-10-31] MEDS: HYDROcodone/APAP 10/325 MG 1 TAB TAB PO PRN (18:49)
[2020-10-31] MEDS: INSULIN LANTUS 100 UNITS/ML 10 ML VIAL SUBQ SCH (21:10)
[2020-11-01] VITALS: BP 150/75
[2020-11-01] MEDS: LACTATED RINGERS 1,000 ML IV SCH ×3 (04:25→21:05)
[2020-11-01 06:12] LABS: BASOPHILS # (AUTO) 0.2 K/uL (0.00-0.22); EOSINOPHILS # (AUTO) 0.1 K/uL (0-0.4); EOSINOPHILS % (AUTO) 1.9 % (0.0-4.0); HEMATOCRIT 27.3 % (36-52); HEMOGLOBIN 9.8 g/dL (12.0-18.0); LYMPHOCYTES # (AUTO) 1.5 K/uL (2.0-11.5); LYMPHOCYTES % (AUTO) 20.1 % (20.5-51.1); MEAN CORPUSCULAR HEMOGLOBIN 32 pg (27-31); MEAN CORPUSCULAR HGB CONC 36 g/dL (33-37); MEAN CORPUSCULAR VOLUME 90.2 fL (80-94); MONOCYTES # (AUTO) 0.6 K/uL (0.8-1.0); MONOCYTES % (AUTO) 7.7 % (1.7-9.3); NEUTROPHILS # (AUTO) 5.2 K/uL (1.8-7.7); NEUTROPHILS % (AUTO) 68.3 % (42.2-75.2); PLATELET COUNT (AUTO) 530 K/uL (140-450); RED BLOOD CELL COUNT(AUTO) 3.03 MIL/uL (4.20-6.10); WHITE BLOOD COUNT (AUTO) 7.7 K/uL (4.8-10.8)
[2020-11-01 06:49] LABS: MAGNESIUM 1.9 mg/dL (1.8-2.4); PHOSPHORUS 3.7 mg/dL (2.5-4.9)
[2020-11-01] MEDS: BLOOD GLUCOSE MONITORING 1 DEV DEV FS SCH ×5 (07:05→21:00)
[2020-11-01 07:16] LABS: ALBUMIN 1.6 g/dL (3.4-5.0); ANION GAP 7.7 (8-16); CARBON DIOXIDE 29.1 mmol/L (21-32); CREATININE 0.9 mg/dL (0.6-1.3); POTASSIUM 3.8 mmol/L (3.5-5.1); TOTAL BILIRUBIN 0.5 mg/dL (0.0-1.0)
[2020-11-01 08:00] VITALS: BP 156/85
[2020-11-01] MEDS: BENZONATATE 100 MG CAPLF PO SCH ×3 (09:00→17:05)
[2020-11-01] MEDS: FUROSEMIDE 20 MG TAB PO SCH (09:00)
[2020-11-01] MEDS: SODIUM CHLORIDE 1 GM TAB PO SCH ×3 (09:00→17:02)
[2020-11-01] MEDS ORDERED: BUPIVACAINE-MPF/EPI 0.25% 30 ML VIAL INJ ONE (12:35)
[2020-11-01] MEDS ORDERED: DESFLURANE 240 ML BTL INH ONE (12:35)
[2020-11-01] MEDS ORDERED: ceFAZolin 1,000 MG VIAL ONE (12:35)
[2020-11-01] MEDS ORDERED: HYDROGEN PEROXIDE 3% 240 ML BTL TP ONE (12:36)
[2020-11-01] MEDS ORDERED: ONDANSETRON 4 MG/2 ML VIAL ONE (12:45)
[2020-11-01] MEDS ORDERED: fentaNYL citrate 0.05 MG/ML VIAL ONE ×2 (12:46→14:18)
[2020-11-01] MEDS: GAUZE TP SCH (13:00)
[2020-11-01] MEDS ORDERED: ONDANSETRON 4 MG/2 ML VIAL IVP PRN (13:05)
[2020-11-01] MEDS ORDERED: HYDROmorphone 1 MG/ML AMP IVP PRN ×2 (13:05→13:55)
[2020-11-01] MEDS ORDERED: PROPOFOL 200 MG/20 ML VIAL IV ONE (13:14)
[2020-11-01] MEDS ORDERED: HYDROcodone/APAP 5/325 MG 1 TAB TAB PO PRN (13:55)
[2020-11-01] MEDS ORDERED: MORPHINE SULFATE 2 MG/ML SYR IVP PRN (13:55)
[2020-11-01] MEDS ORDERED: MORPHINE SULFATE 4 MG/ML SYR IV PRN (13:55)
[2020-11-01] MEDS ORDERED: HYDROmorphone PFS 2 MG/ML SYR ONE (14:23)
[2020-11-01 16:00] VITALS: BP 154/96
[2020-11-01] MEDS: INSULIN LANTUS 100 UNITS/ML 10 ML VIAL SUBQ SCH (21:00)
[2020-11-01] MEDS: ZOLPIDEM 5 MG TAB PO PRN (23:02)
[2020-11-02] VITALS: BP 153/88
[2020-11-02] MEDS: LACTATED RINGERS 1,000 ML IV SCH ×3 (05:25→22:05)
[2020-11-02] MEDS: BLOOD GLUCOSE MONITORING 1 DEV DEV FS SCH ×4 (06:36→21:00)
[2020-11-02 07:46] LABS: BASOPHILS # (AUTO) 0.1 K/uL (0.00-0.22); BASOPHILS % (AUTO) 1.1 % (0.0-2.0); EOSINOPHILS % (AUTO) 0.1 % (0.0-4.0); HEMATOCRIT 30.7 % (36-52); HEMOGLOBIN 10.7 g/dL (12.0-18.0); LYMPHOCYTES # (AUTO) 1.3 K/uL (2.0-11.5); LYMPHOCYTES % (AUTO) 9.8 % (20.5-51.1); MEAN CORPUSCULAR HEMOGLOBIN 30 pg (27-31); MEAN CORPUSCULAR HGB CONC 35 g/dL (33-37); MEAN CORPUSCULAR VOLUME 85.5 fL (80-94); MONOCYTES # (AUTO) 0.9 K/uL (0.8-1.0); MONOCYTES % (AUTO) 6.6 % (1.7-9.3); NEUTROPHILS # (AUTO) 10.8 K/uL (1.8-7.7); NEUTROPHILS % (AUTO) 82.4 % (42.2-75.2); PLATELET COUNT (AUTO) 558 K/uL (140-450); WHITE BLOOD COUNT (AUTO) 13.1 K/uL (4.8-10.8)
[2020-11-02 08:00] VITALS: BP 142/72
[2020-11-02] MEDS: BENZONATATE 100 MG CAPLF PO SCH ×3 (09:53→17:23)
[2020-11-02] MEDS: FUROSEMIDE 20 MG TAB PO SCH (09:53)
[2020-11-02] MEDS: SODIUM CHLORIDE 1 GM TAB PO SCH ×3 (09:53→17:23)
[2020-11-02] MEDS: ACETAMINOPHEN 325 MG TAB PO PRN ×3 (09:58→23:07)
[2020-11-02 11:56] LABS: MAGNESIUM 1.8 mg/dL (1.8-2.4); PHOSPHORUS 3.1 mg/dL (2.5-4.9)
[2020-11-02 12:16] LABS: ALBUMIN 1.7 g/dL (3.4-5.0); ANION GAP 9.7 (8-16); CARBON DIOXIDE 27.6 mmol/L (21-32); POTASSIUM 4.3 mmol/L (3.5-5.1); TOTAL BILIRUBIN 0.7 mg/dL (0.0-1.0)
[2020-11-02] MEDS: INSULIN LISPRO SLIDING SCALE 100 UNITS/ML VIAL SUBQ PRN ×3 (12:34→22:43)
[2020-11-02] MEDS: GAUZE TP SCH (13:00)
[2020-11-02 16:00] VITALS: BP 123/74
[2020-11-02 20:00] VITALS: BP 131/77
[2020-11-02] MEDS: INSULIN LANTUS 100 UNITS/ML 10 ML VIAL SUBQ SCH (22:40)
[2020-11-03] VITALS: BP 143/84
[2020-11-03 02:00] VITALS: BP 133/82
[2020-11-03] MEDS ORDERED: KETOROLAC 30 MG/ML VIAL IVP SCH (02:20)
[2020-11-03] MEDS: ZOLPIDEM 5 MG TAB PO PRN ×2 (02:35→23:41)
[2020-11-03] MEDS: LACTATED RINGERS 1,000 ML IV SCH ×4 (02:41→23:05)
[2020-11-03 04:00] VITALS: BP 132/78
[2020-11-03] MEDS: BLOOD GLUCOSE MONITORING 1 DEV DEV FS SCH ×4 (07:12→21:28)
[2020-11-03] MEDS: INSULIN LISPRO SLIDING SCALE 100 UNITS/ML VIAL SUBQ PRN ×4 (07:13→21:19)
[2020-11-03 07:34] LABS: BASOPHILS # (AUTO) 0.1 K/uL (0.00-0.22); BASOPHILS % (AUTO) 0.7 % (0.0-2.0); EOSINOPHILS % (AUTO) 0.4 % (0.0-4.0); HEMATOCRIT 30.2 % (36-52); HEMOGLOBIN 10.5 g/dL (12.0-18.0); LYMPHOCYTES # (AUTO) 0.8 K/uL (2.0-11.5); LYMPHOCYTES % (AUTO) 10.2 % (20.5-51.1); MEAN CORPUSCULAR HEMOGLOBIN 30 pg (27-31); MEAN CORPUSCULAR HGB CONC 35 g/dL (33-37); MEAN CORPUSCULAR VOLUME 86.2 fL (80-94); MONOCYTES # (AUTO) 0.4 K/uL (0.8-1.0); MONOCYTES % (AUTO) 5.4 % (1.7-9.3); NEUTROPHILS # (AUTO) 6.7 K/uL (1.8-7.7); NEUTROPHILS % (AUTO) 83.3 % (42.2-75.2); PLATELET COUNT (AUTO) 506 K/uL (140-450); RED BLOOD CELL COUNT(AUTO) 3.51 MIL/uL (4.20-6.10); RED CELL DISTRIBUTION WIDTH 14.5 % (11.6-13.7)
[2020-11-03 07:45] LABS: MAGNESIUM 1.8 mg/dL (1.8-2.4); PHOSPHORUS 2.7 mg/dL (2.5-4.9)
[2020-11-03 08:01] LABS: ALBUMIN 1.5 g/dL (3.4-5.0); ANION GAP 9.5 (8-16); CARBON DIOXIDE 26.1 mmol/L (21-32); CREATININE 0.9 mg/dL (0.6-1.3); POTASSIUM 3.6 mmol/L (3.5-5.1); TOTAL BILIRUBIN 0.5 mg/dL (0.0-1.0)
[2020-11-03] MEDS: BENZONATATE 100 MG CAPLF PO SCH ×3 (08:41→17:26)
[2020-11-03] MEDS: SODIUM CHLORIDE 1 GM TAB PO SCH ×3 (08:41→17:26)
[2020-11-03] MEDS: FUROSEMIDE 20 MG TAB PO SCH (08:41)
[2020-11-03] MEDS: ACETAMINOPHEN 325 MG TAB PO PRN ×3 (08:41→23:41)
[2020-11-03] MEDS: GAUZE TP SCH (12:06)
[2020-11-03 16:00] VITALS: BP 110/95
[2020-11-03] MEDS ORDERED: MECLIZINE 25 MG TAB PO PRN (17:40)
[2020-11-03 20:00] VITALS: BP 130/78
[2020-11-03] MEDS ORDERED: INSULIN LANTUS 100 UNITS/ML 10 ML VIAL SUBQ SCH (21:00)
[2020-11-03] MEDS: INSULIN LANTUS 100 UNITS/ML 10 ML VIAL SUBQ SCH (21:16)
[2020-11-03] MEDS ORDERED: VANCOMYCIN PER PHARMACY MC PRN (22:40)
[2020-11-03] MEDS ORDERED: VANCOMYCIN 1GM/DEXT 5% PREMIX 200 ML IV SCH (23:00)
[2020-11-04] VITALS: BP 129/76
[2020-11-04] MEDS ORDERED: PIPERACILLIN/TAZOBACTAM 3.375 GM VIAL IV ONE ×2 (00:30→05:11)
[2020-11-04] MEDS ORDERED: VANCOMYCIN 1,000 MG VIAL ONE (00:31)
[2020-11-04] MEDS: PIPERACILLIN/TAZOBACTAM 3.375 GM in DEXTROSE 5% 50 ML IV SCH ×5 (01:06→23:47)
[2020-11-04] MEDS: BLOOD GLUCOSE MONITORING 1 DEV DEV FS SCH ×4 (06:18→22:54)
[2020-11-04 07:35] LABS: BASOPHILS # (AUTO) 0.1 K/uL (0.00-0.22); BASOPHILS % (AUTO) 0.9 % (0.0-2.0); EOSINOPHILS # (AUTO) 0.1 K/uL (0-0.4); EOSINOPHILS % (AUTO) 1.2 % (0.0-4.0); HEMATOCRIT 27.1 % (36-52); HEMOGLOBIN 9.4 g/dL (12.0-18.0); LYMPHOCYTES # (AUTO) 1.1 K/uL (2.0-11.5); LYMPHOCYTES % (AUTO) 16.2 % (20.5-51.1); MEAN CORPUSCULAR HEMOGLOBIN 30 pg (27-31); MEAN CORPUSCULAR HGB CONC 35 g/dL (33-37); MEAN CORPUSCULAR VOLUME 87.1 fL (80-94); MONOCYTES # (AUTO) 0.4 K/uL (0.8-1.0); MONOCYTES % (AUTO) 6.7 % (1.7-9.3); PLATELET COUNT (AUTO) 436 K/uL (140-450); RED BLOOD CELL COUNT(AUTO) 3.11 MIL/uL (4.20-6.10); WHITE BLOOD COUNT (AUTO) 6.7 K/uL (4.8-10.8)
[2020-11-04 07:43] LABS: ALBUMIN 1.4 g/dL (3.4-5.0); CARBON DIOXIDE 26.4 mmol/L (21-32); POTASSIUM 3.4 mmol/L (3.5-5.1); TOTAL BILIRUBIN 0.5 mg/dL (0.0-1.0)
[2020-11-04 07:48] LABS: PHOSPHORUS 2.6 mg/dL (2.5-4.9)
[2020-11-04 08:00] VITALS: BP 124/73
[2020-11-04 08:45] LABS: APPEARANCE,URINE CLEAR (CLEAR); BILIRUBIN,URINE NEGATIVE (NEGATIVE); BLOOD, URINE NEGATIVE (NEGATIVE); COLOR,URINE YELLOW (YELLOW); LEUKOCYTE ESTERASE ,URINE NEGATIVE (NEGATIVE); NITRITE, URINE NEGATIVE (NEGATIVE); UGLUCOSE NEGATIVE (NEGATIVE)
[2020-11-04] MEDS: ACETAMINOPHEN 325 MG TAB PO PRN (09:31)
[2020-11-04] MEDS: SODIUM CHLORIDE 1 GM TAB PO SCH ×3 (09:31→17:45)
[2020-11-04] MEDS: BENZONATATE 100 MG CAPLF PO SCH ×3 (09:32→17:45)
[2020-11-04] MEDS: FUROSEMIDE 20 MG TAB PO SCH (09:32)
[2020-11-04] MEDS: LACTATED RINGERS 1,000 ML IV SCH ×2 (09:35→15:45)
[2020-11-04] MEDS: VANCOMYCIN HCL 1.25 GM in DEXTROSE 5% 250 ML IV SCH ×2 (11:00→22:55)
[2020-11-04] MEDS: INSULIN LISPRO SLIDING SCALE 100 UNITS/ML VIAL SUBQ PRN ×3 (12:01→22:53)
[2020-11-04] MEDS ORDERED: POLYETHYLENE GLYCOL 17 GM/PKT PO SCH (13:00)
[2020-11-04] MEDS ORDERED: DOCUSATE SODIUM 100 MG GELCAP PO SCH (13:00)
[2020-11-04] MEDS: GAUZE TP SCH (13:23)
[2020-11-04 16:00] VITALS: BP 145/88
[2020-11-04 22:50] VITALS: BP 158/88
[2020-11-04] MEDS: INSULIN LANTUS 100 UNITS/ML 10 ML VIAL SUBQ SCH (22:54)
[2020-11-05] MEDS: LACTATED RINGERS 1,000 ML IV SCH ×3 (00:03→16:56)
[2020-11-05 00:43] VITALS: BP 142/83
[2020-11-05] MEDS: PIPERACILLIN/TAZOBACTAM 3.375 GM in DEXTROSE 5% 50 ML IV SCH ×3 (06:32→18:06)
[2020-11-05] MEDS: BLOOD GLUCOSE MONITORING 1 DEV DEV FS SCH ×4 (07:33→22:28)
[2020-11-05 07:50] LABS: ALBUMIN 1.5 g/dL (3.4-5.0); ANION GAP 9.3 (8-16); CREATININE 0.9 mg/dL (0.6-1.3); POTASSIUM 3.3 mmol/L (3.5-5.1); TOTAL BILIRUBIN 0.5 mg/dL (0.0-1.0)
[2020-11-05 08:00] VITALS: BP 118/72
[2020-11-05 08:09] LABS: BASOPHILS # (AUTO) 0.1 K/uL (0.00-0.22); BASOPHILS % (AUTO) 1.9 % (0.0-2.0); EOSINOPHILS # (AUTO) 0.1 K/uL (0-0.4); EOSINOPHILS % (AUTO) 1.9 % (0.0-4.0); HEMATOCRIT 27.9 % (36-52); HEMOGLOBIN 9.6 g/dL (12.0-18.0); LYMPHOCYTES # (AUTO) 1.4 K/uL (2.0-11.5); LYMPHOCYTES % (AUTO) 19.2 % (20.5-51.1); MEAN CORPUSCULAR HEMOGLOBIN 30 pg (27-31); MEAN CORPUSCULAR HGB CONC 34 g/dL (33-37); MEAN CORPUSCULAR VOLUME 86.6 fL (80-94); MONOCYTES # (AUTO) 0.5 K/uL (0.8-1.0); MONOCYTES % (AUTO) 6.9 % (1.7-9.3); NEUTROPHILS # (AUTO) 5.2 K/uL (1.8-7.7); NEUTROPHILS % (AUTO) 70.1 % (42.2-75.2); PLATELET COUNT (AUTO) 455 K/uL (140-450); RED BLOOD CELL COUNT(AUTO) 3.22 MIL/uL (4.20-6.10); RED CELL DISTRIBUTION WIDTH 14.4 % (11.6-13.7); WHITE BLOOD COUNT (AUTO) 7.4 K/uL (4.8-10.8)
[2020-11-05] MEDS: BENZONATATE 100 MG CAPLF PO SCH ×3 (08:44→16:56)
[2020-11-05] MEDS: FUROSEMIDE 20 MG TAB PO SCH (08:45)
[2020-11-05] MEDS: SODIUM CHLORIDE 1 GM TAB PO SCH ×3 (08:45→16:56)
[2020-11-05] MEDS ORDERED: POTASSIUM CHLORIDE 10 MEQ TABER PO SCH (10:27)
[2020-11-05] MEDS: VANCOMYCIN HCL 1.25 GM in DEXTROSE 5% 250 ML IV SCH ×2 (10:33→22:32)
[2020-11-05] MEDS: INSULIN LISPRO SLIDING SCALE 100 UNITS/ML VIAL SUBQ PRN ×2 (12:17→22:31)
[2020-11-05] MEDS: GAUZE TP SCH (13:00)
[2020-11-05 16:00] VITALS: BP 132/76
[2020-11-05 20:00] VITALS: BP 128/80
[2020-11-05] MEDS: INSULIN LANTUS 100 UNITS/ML 10 ML VIAL SUBQ SCH (22:30)
[2020-11-06] MEDS: PIPERACILLIN/TAZOBACTAM 3.375 GM in DEXTROSE 5% 50 ML IV SCH ×4 (00:26→18:55)
[2020-11-06] MEDS: LACTATED RINGERS 1,000 ML IV SCH ×4 (01:35→22:55)
[2020-11-06] MEDS: BLOOD GLUCOSE MONITORING 1 DEV DEV FS SCH ×4 (06:29→21:12)
[2020-11-06 07:53] LABS: BASOPHILS # (AUTO) 0.1 K/uL (0.00-0.22); BASOPHILS % (AUTO) 1.7 % (0.0-2.0); EOSINOPHILS # (AUTO) 0.1 K/uL (0-0.4); EOSINOPHILS % (AUTO) 1.8 % (0.0-4.0); HEMATOCRIT 27.6 % (36-52); HEMOGLOBIN 9.7 g/dL (12.0-18.0); LYMPHOCYTES # (AUTO) 1.5 K/uL (2.0-11.5); LYMPHOCYTES % (AUTO) 19.9 % (20.5-51.1); MEAN CORPUSCULAR HEMOGLOBIN 31 pg (27-31); MEAN CORPUSCULAR HGB CONC 35 g/dL (33-37); MEAN CORPUSCULAR VOLUME 86.8 fL (80-94); MONOCYTES # (AUTO) 0.6 K/uL (0.8-1.0); MONOCYTES % (AUTO) 7.2 % (1.7-9.3); NEUTROPHILS # (AUTO) 5.3 K/uL (1.8-7.7); NEUTROPHILS % (AUTO) 69.4 % (42.2-75.2); PLATELET COUNT (AUTO) 440 K/uL (140-450); RED BLOOD CELL COUNT(AUTO) 3.18 MIL/uL (4.20-6.10); RED CELL DISTRIBUTION WIDTH 14.5 % (11.6-13.7); WHITE BLOOD COUNT (AUTO) 7.6 K/uL (4.8-10.8)
[2020-11-06 08:00] VITALS: BP 129/68
[2020-11-06] MEDS: BENZONATATE 100 MG CAPLF PO SCH ×3 (08:58→17:19)
[2020-11-06] MEDS: FUROSEMIDE 20 MG TAB PO SCH (08:58)
[2020-11-06] MEDS: SODIUM CHLORIDE 1 GM TAB PO SCH ×3 (08:58→17:20)
[2020-11-06] MEDS: VANCOMYCIN HCL 1.25 GM in DEXTROSE 5% 250 ML IV SCH ×2 (11:45→22:54)
[2020-11-06] MEDS: GAUZE TP SCH (13:00)
[2020-11-06 16:00] VITALS: BP 138/77
[2020-11-06 20:00] VITALS: BP 138/81
[2020-11-06] MEDS: INSULIN LANTUS 100 UNITS/ML 10 ML VIAL SUBQ SCH (21:05)
[2020-11-06] MEDS: INSULIN LISPRO SLIDING SCALE 100 UNITS/ML VIAL SUBQ PRN (21:10)
[2020-11-06] MEDS: ZOLPIDEM 5 MG TAB PO PRN (21:12)
[2020-11-07] MEDS: PIPERACILLIN/TAZOBACTAM 3.375 GM in DEXTROSE 5% 50 ML IV SCH ×4 (00:49→18:00)
[2020-11-07 04:00] VITALS: BP 140/78
[2020-11-07] MEDS: BLOOD GLUCOSE MONITORING 1 DEV DEV FS SCH ×4 (06:31→21:00)
[2020-11-07 07:46] LABS: ANION GAP 9.7 (8-16); CARBON DIOXIDE 28.9 mmol/L (21-32); POTASSIUM 3.6 mmol/L (3.5-5.1)
[2020-11-07] MEDS ORDERED: POTASSIUM CHLORIDE 10 MEQ TABER PO SCH (07:58)
[2020-11-07] MEDS: SODIUM CHLORIDE 1 GM TAB PO SCH ×3 (08:52→17:04)
[2020-11-07] MEDS: BENZONATATE 100 MG CAPLF PO SCH ×3 (08:52→17:04)
[2020-11-07] MEDS: FUROSEMIDE 20 MG TAB PO SCH (08:52)
[2020-11-07] MEDS: LACTATED RINGERS 1,000 ML IV SCH ×2 (10:25→18:48)
[2020-11-07] MEDS: VANCOMYCIN HCL 1.25 GM in DEXTROSE 5% 250 ML IV SCH ×2 (11:00→23:57)
[2020-11-07] MEDS: INSULIN LISPRO SLIDING SCALE 100 UNITS/ML VIAL SUBQ PRN ×3 (12:34→22:14)
[2020-11-07] MEDS: GAUZE TP SCH (13:00)
[2020-11-07 16:00] VITALS: BP 127/76
[2020-11-07] MEDS: INSULIN LANTUS 100 UNITS/ML 10 ML VIAL SUBQ SCH (21:00)
[2020-11-08] MEDS: LACTATED RINGERS 1,000 ML IV SCH ×3 (03:05→19:45)
[2020-11-08] MEDS: PIPERACILLIN/TAZOBACTAM 3.375 GM in DEXTROSE 5% 50 ML IV SCH ×4 (06:00→23:12)
[2020-11-08 06:12] LABS: ANION GAP 8.8 (8-16); BASOPHILS # (AUTO) 0.2 K/uL (0.00-0.22); BASOPHILS % (AUTO) 1.8 % (0.0-2.0); CARBON DIOXIDE 30.9 mmol/L (21-32); EOSINOPHILS # (AUTO) 0.2 K/uL (0-0.4); EOSINOPHILS % (AUTO) 2.3 % (0.0-4.0); HEMOGLOBIN 10.3 g/dL (12.0-18.0); LYMPHOCYTES # (AUTO) 2.4 K/uL (2.0-11.5); LYMPHOCYTES % (AUTO) 25.1 % (20.5-51.1); MEAN CORPUSCULAR HEMOGLOBIN 30 pg (27-31); MEAN CORPUSCULAR HGB CONC 34 g/dL (33-37); MONOCYTES # (AUTO) 0.6 K/uL (0.8-1.0); MONOCYTES % (AUTO) 6.1 % (1.7-9.3); NEUTROPHILS # (AUTO) 6.2 K/uL (1.8-7.7); NEUTROPHILS % (AUTO) 64.7 % (42.2-75.2); PLATELET COUNT (AUTO) 519 K/uL (140-450); POTASSIUM 3.7 mmol/L (3.5-5.1); RED BLOOD CELL COUNT(AUTO) 3.41 MIL/uL (4.20-6.10); RED CELL DISTRIBUTION WIDTH 14.6 % (11.6-13.7); WHITE BLOOD COUNT (AUTO) 9.6 K/uL (4.8-10.8)
[2020-11-08] MEDS: BLOOD GLUCOSE MONITORING 1 DEV DEV FS SCH ×4 (06:56→21:24)
[2020-11-08 08:00] VITALS: BP 126/75
[2020-11-08] MEDS: FUROSEMIDE 20 MG TAB PO SCH (08:35)
[2020-11-08] MEDS: SODIUM CHLORIDE 1 GM TAB PO SCH ×3 (08:35→17:00)
[2020-11-08] MEDS: BENZONATATE 100 MG CAPLF PO SCH ×3 (08:36→17:00)
[2020-11-08] MEDS: VANCOMYCIN HCL 1.25 GM in DEXTROSE 5% 250 ML IV SCH ×2 (11:34→22:15)
[2020-11-08] MEDS: GAUZE TP SCH (13:00)
[2020-11-08 16:00] VITALS: BP 138/80
[2020-11-08] MEDS ORDERED: LIDOCAINE 1% 500 MG/50 ML VIAL ONE (17:04)
[2020-11-08] MEDS ORDERED: BUPIVACAINE-MPF 0.25% 30 ML VIAL INJ ONE (17:04)
[2020-11-08] MEDS ORDERED: DESFLURANE 240 ML BTL INH ONE (17:36)
[2020-11-08] MEDS ORDERED: fentaNYL citrate 0.05 MG/ML VIAL ONE (17:55)
[2020-11-08] MEDS ORDERED: ONDANSETRON 4 MG/2 ML VIAL ONE (18:17)
[2020-11-08] MEDS ORDERED: PROPOFOL 200 MG/20 ML VIAL IV ONE (18:18)
[2020-11-08] MEDS: INSULIN LANTUS 100 UNITS/ML 10 ML VIAL SUBQ SCH (21:24)
[2020-11-08] MEDS ORDERED: PIPERACILLIN/TAZOBACTAM 3.375 GM VIAL IV ONE (22:17)
[2020-11-09] MEDS: LACTATED RINGERS 1,000 ML IV SCH ×3 (01:00→20:45)
[2020-11-09] MEDS ORDERED: PIPERACILLIN/TAZOBACTAM 3.375 GM VIAL IV ONE (05:44)
[2020-11-09] MEDS: PIPERACILLIN/TAZOBACTAM 3.375 GM in DEXTROSE 5% 50 ML IV SCH ×3 (05:50→19:11)
[2020-11-09] MEDS: BLOOD GLUCOSE MONITORING 1 DEV DEV FS SCH ×4 (06:17→21:52)
[2020-11-09] MEDS: INSULIN LISPRO SLIDING SCALE 100 UNITS/ML VIAL SUBQ PRN ×2 (06:18→12:13)
[2020-11-09 06:21] LABS: BASOPHILS # (AUTO) 0.1 K/uL (0.00-0.22); BASOPHILS % (AUTO) 1.5 % (0.0-2.0); EOSINOPHILS # (AUTO) 0.2 K/uL (0-0.4); HEMATOCRIT 27.8 % (36-52); HEMOGLOBIN 9.6 g/dL (12.0-18.0); LYMPHOCYTES # (AUTO) 1.3 K/uL (2.0-11.5); LYMPHOCYTES % (AUTO) 15.7 % (20.5-51.1); MEAN CORPUSCULAR HEMOGLOBIN 30 pg (27-31); MEAN CORPUSCULAR HGB CONC 35 g/dL (33-37); MEAN CORPUSCULAR VOLUME 87.1 fL (80-94); MONOCYTES # (AUTO) 0.6 K/uL (0.8-1.0); MONOCYTES % (AUTO) 6.5 % (1.7-9.3); NEUTROPHILS # (AUTO) 6.4 K/uL (1.8-7.7); NEUTROPHILS % (AUTO) 74.3 % (42.2-75.2); PLATELET COUNT (AUTO) 501 K/uL (140-450); RED BLOOD CELL COUNT(AUTO) 3.19 MIL/uL (4.20-6.10); RED CELL DISTRIBUTION WIDTH 14.8 % (11.6-13.7); WHITE BLOOD COUNT (AUTO) 8.6 K/uL (4.8-10.8)
[2020-11-09 06:28] LABS: ANION GAP 9.8 (8-16); CREATININE 1.1 mg/dL (0.6-1.3); POTASSIUM 3.8 mmol/L (3.5-5.1)
[2020-11-09 08:00] VITALS: BP 131/74
[2020-11-09] MEDS: BENZONATATE 100 MG CAPLF PO SCH ×3 (10:14→17:53)
[2020-11-09] MEDS: SODIUM CHLORIDE 1 GM TAB PO SCH ×3 (10:15→17:53)
[2020-11-09] MEDS: FUROSEMIDE 20 MG TAB PO SCH (10:21)
[2020-11-09] MEDS: GAUZE TP SCH (13:00)
[2020-11-09 16:00] VITALS: BP 129/66
[2020-11-09] MEDS: INSULIN LANTUS 100 UNITS/ML 10 ML VIAL SUBQ SCH (22:00)
[2020-11-09] MEDS ORDERED: INSULIN LANTUS 100 UNITS/ML 10 ML VIAL SUBQ ONE (22:55)
[2020-11-09] MEDS: ZOLPIDEM 5 MG TAB PO PRN (23:12)
[2020-11-10] VITALS: BP 149/85
[2020-11-10] MEDS: PIPERACILLIN/TAZOBACTAM 3.375 GM in DEXTROSE 5% 50 ML IV SCH ×5 (00:23→23:05)
[2020-11-10] MEDS: LACTATED RINGERS 1,000 ML IV SCH ×4 (05:05→22:55)
[2020-11-10] MEDS: BLOOD GLUCOSE MONITORING 1 DEV DEV FS SCH ×4 (06:16→20:27)
[2020-11-10 07:00] LABS: BASOPHILS # (AUTO) 0.2 K/uL (0.00-0.22); BASOPHILS % (AUTO) 1.8 % (0.0-2.0); EOSINOPHILS # (AUTO) 0.2 K/uL (0-0.4); EOSINOPHILS % (AUTO) 2.8 % (0.0-4.0); HEMATOCRIT 29.3 % (36-52); LYMPHOCYTES # (AUTO) 1.6 K/uL (2.0-11.5); LYMPHOCYTES % (AUTO) 19.4 % (20.5-51.1); MEAN CORPUSCULAR HEMOGLOBIN 29 pg (27-31); MEAN CORPUSCULAR HGB CONC 34 g/dL (33-37); MEAN CORPUSCULAR VOLUME 85.6 fL (80-94); MONOCYTES # (AUTO) 0.6 K/uL (0.8-1.0); NEUTROPHILS # (AUTO) 5.7 K/uL (1.8-7.7); PLATELET COUNT (AUTO) 526 K/uL (140-450); RED BLOOD CELL COUNT(AUTO) 3.42 MIL/uL (4.20-6.10); RED CELL DISTRIBUTION WIDTH 15.1 % (11.6-13.7); WHITE BLOOD COUNT (AUTO) 8.3 K/uL (4.8-10.8)
[2020-11-10 07:02] LABS: ANION GAP 10.4 (8-16); CARBON DIOXIDE 29.2 mmol/L (21-32); CREATININE 1.2 mg/dL (0.6-1.3); POTASSIUM 3.6 mmol/L (3.5-5.1)
[2020-11-10 08:00] VITALS: BP 132/80
[2020-11-10] MEDS: SODIUM CHLORIDE 1 GM TAB PO SCH ×3 (08:45→16:49)
[2020-11-10] MEDS: VANCOMYCIN 1,000 MG in DEXTROSE 5% 250 ML IV SCH ×2 (08:45→20:31)
[2020-11-10] MEDS: FUROSEMIDE 20 MG TAB PO SCH (08:45)
[2020-11-10] MEDS: BENZONATATE 100 MG CAPLF PO SCH ×3 (08:45→16:49)
[2020-11-10] MEDS: INSULIN LISPRO SLIDING SCALE 100 UNITS/ML VIAL SUBQ PRN ×3 (11:51→20:28)
[2020-11-10] MEDS: GAUZE TP SCH (12:53)
[2020-11-10 16:00] VITALS: BP 138/81
[2020-11-10] MEDS: INSULIN LANTUS 100 UNITS/ML 10 ML VIAL SUBQ SCH (20:29)
[2020-11-11] VITALS: BP 135/75
[2020-11-11] MEDS: PIPERACILLIN/TAZOBACTAM 3.375 GM in DEXTROSE 5% 50 ML IV SCH ×2 (05:09→12:00)
[2020-11-11] MEDS: LACTATED RINGERS 1,000 ML IV SCH (06:05)
[2020-11-11] MEDS: BLOOD GLUCOSE MONITORING 1 DEV DEV FS SCH ×2 (06:37→11:30)
[2020-11-11] MEDS: INSULIN LISPRO SLIDING SCALE 100 UNITS/ML VIAL SUBQ PRN ×2 (06:59→14:00)
[2020-11-11 07:00] LABS: ANION GAP 8.1 (8-16); CARBON DIOXIDE 27.3 mmol/L (21-32); CREATININE 1.3 mg/dL (0.6-1.3); POTASSIUM 3.4 mmol/L (3.5-5.1)
[2020-11-11 07:06] LABS: BASOPHILS # (AUTO) 0.2 K/uL (0.00-0.22); EOSINOPHILS # (AUTO) 0.3 K/uL (0-0.4); EOSINOPHILS % (AUTO) 2.9 % (0.0-4.0); HEMATOCRIT 29.1 % (36-52); HEMOGLOBIN 9.8 g/dL (12.0-18.0); LYMPHOCYTES # (AUTO) 1.9 K/uL (2.0-11.5); LYMPHOCYTES % (AUTO) 21.2 % (20.5-51.1); MEAN CORPUSCULAR HEMOGLOBIN 28 pg (27-31); MEAN CORPUSCULAR HGB CONC 34 g/dL (33-37); MEAN CORPUSCULAR VOLUME 84.2 fL (80-94); MONOCYTES # (AUTO) 0.6 K/uL (0.8-1.0); MONOCYTES % (AUTO) 6.8 % (1.7-9.3); NEUTROPHILS # (AUTO) 5.9 K/uL (1.8-7.7); NEUTROPHILS % (AUTO) 67.1 % (42.2-75.2); PLATELET COUNT (AUTO) 500 K/uL (140-450); RED BLOOD CELL COUNT(AUTO) 3.45 MIL/uL (4.20-6.10); RED CELL DISTRIBUTION WIDTH 15.1 % (11.6-13.7); WHITE BLOOD COUNT (AUTO) 8.9 K/uL (4.8-10.8)
[2020-11-11 08:00] VITALS: BP 138/81
[2020-11-11] MEDS ORDERED: POTASSIUM CHLORIDE 10 MEQ TABER PO PRN (09:20)
[2020-11-11] MEDS: VANCOMYCIN 1,000 MG in DEXTROSE 5% 250 ML IV SCH (09:30)
[2020-11-11] MEDS: FUROSEMIDE 20 MG TAB PO SCH (09:30)
[2020-11-11] MEDS: BENZONATATE 100 MG CAPLF PO SCH ×2 (09:31→13:10)
[2020-11-11] MEDS: SODIUM CHLORIDE 1 GM TAB PO SCH ×2 (09:31→13:10)
[2020-11-11] MEDS ORDERED: POTA10TE30 PO (10:34)
[2020-11-11] MEDS ORDERED: INSU100S22 SUBQ (10:34)
[2020-11-11] MEDS ORDERED: CLIN300C2 PO (10:34)
[2020-11-11] MEDS ORDERED: AMOX-999 PO (10:34)
[2020-11-11] MEDS ORDERED: GLIP10TA12 PO (10:34)
[2020-11-11] MEDS ORDERED: METF-1022 PO (10:34)
[2020-11-11] MEDS ORDERED: SKINTEGRITY HYDROGEL TP SCH (13:00)
[2020-11-11] MEDS: GAUZE TP SCH (13:10)
[2020-11-12] MEDS ORDERED: VANCOMYCIN 1,000 MG in DEXTROSE 5% 250 ML IV SCH (09:00)
== END 2020-11-11 14:12 | disposition home or self-care (01) | DRG 463 ==
LOC: MED 18:34 → MTU 21:46
PROVIDERS: ADMIT Family Medicine; ATTEND Family Medicine
PROC: 0JBQ0ZZ Excision of Right Foot Subcutaneous Tissue and Fascia, Open Approach (ICD-10-PCS; 2020-10-15)
PROC: 0JBN0ZZ Excision of Right Lower Leg Subcutaneous Tissue and Fascia, Open Approach (ICD-10-PCS; 2020-10-21)
PROC: 0Y6H0Z1 Detachment at Right Lower Leg, High, Open Approach (ICD-10-PCS; principal; 2020-10-26 17:10)
PROC: 30233N1 Transfusion of Nonautologous Red Blood Cells into Peripheral Vein, Percutaneous Approach (ICD-10-PCS; 2020-10-31)
PROC: 0Y6H0Z1 Detachment at Right Lower Leg, High, Open Approach (ICD-10-PCS; 2020-11-01)
PROC: 0S9C0ZZ Drainage of Right Knee Joint, Open Approach (ICD-10-PCS; 2020-11-08)
DX: T87.43 Infection of amputation stump, right lower extremity (principal); A41.9 Sepsis, unspecified organism; E43 Unspecified severe protein-calorie malnutrition; M72.6 Necrotizing fasciitis; R65.20 Severe sepsis without septic shock; N17.0 Acute kidney failure with tubular necrosis; L02.419 Cutaneous abscess of limb, unspecified; L03.115 Cellulitis of right lower limb; M86.9 Osteomyelitis, unspecified; E87.1 Hypo-osmolality and hyponatremia; D64.9 Anemia, unspecified; E11.69 Type 2 diabetes mellitus with other specified complication; Z68.25 Body mass index [BMI] 25.0-25.9, adult; I10 Essential (primary) hypertension; Y83.5 Amputation of limb(s) as the cause of abnormal reaction of the patient, or of later complication, without mention of misadventure at the time of the procedure; Z83.3 Family history of diabetes mellitus; Z82.49 Family history of ischemic heart disease and other diseases of the circulatory system; E11.65 Type 2 diabetes mellitus with hyperglycemia; M17.10 Unilateral primary osteoarthritis, unspecified knee; E83.39 Other disorders of phosphorus metabolism; E87.8 Other disorders of electrolyte and fluid balance, not elsewhere classified; E11.40 Type 2 diabetes mellitus with diabetic neuropathy, unspecified; E11.51 Type 2 diabetes mellitus with diabetic peripheral angiopathy without gangrene; Z20.822 Contact with and (suspected) exposure to COVID-19
CPT/HCPCS: 36415; 71045; 73590; 73610; 73630; 76770; 80048; 80053; 80202; 80305; 81001; 81003; 82150; 82533; 82550; 82570; 82948; 83036; 83605; 83690; 83735; 83880; 83935; 84100; 84300; 84439; 84443; 84484; 84550; 85025; 85610; 85730; 86886; 86900; 86901; 86920; 87040; 87070; 87075; 87081; 87086; 87186; 87205; 88304; 88307; 88311; 93005; 93922; 93925; 93970; 96365; 96368; 96372; 96375; 97110; 97112; 97116; 97530; 99291; A6248; J0690; J1100; J1170; J1815; J1885; J2001; J2175; J2250; J2270; J2405; J2543; J2704; J2765; J3010; J3370; J3475; J3490; J7030; J7060; J7120; P9016; P9046; U0003

== ENCOUNTER 2021-07-27 12:46 | Emergency (ER) | payer MEDICAID ==
[~2021-07-27] VITALS: Ht 165.1 cm; Wt 82.6 kg
[~2021-07-27 12:46] MED LIST: AMOX-999 PO; CLIN300C2 PO; GLIP10TA12 PO; INSU100S22 SUBQ; METF-1253 PO; POTA10TA70 PO
[2021-07-27 12:51] VITALS: BP 146/91
--- NOTE | 2021-07-27 14:05 | NUR ---
PT AMBULATED TO BED
--- NOTE | 2021-07-27 14:20 | NUR ---
51/M C/O LEFT ANKLE PAIN AND SWELLING X10 DAYS, DENIES INJURY OR TRAUMA. PT COMPLAIN OF NO PAIN TO THE L FOOT JUST PRESSURE WHEN HE WALKES. PT STATED HE THINKS THAT NEW SHOES RECOMMENEDED FOR HIS DIABETES CAUSED THE SWOLLEN FOOT. COMPLAIN OF NO PAIN ANYWHERE ELSE. PT RESTING IN BED. PMH: DM [id number]
--- NOTE | 2021-07-27 14:21 | NUR ---
DR PENNINGTON AT BEDSIDE ASSESSING PT
[2021-07-27] MEDS ORDERED: NAPR-1704 PO (14:44)
[2021-07-27 14:56] VITALS: BP 143/89
--- NOTE | 2021-07-27 14:57 | NUR ---
Patient discharged with v/s stable. Written and verbal after care instructions ABOUT EDEMA given and explained. Patient alert, oriented and verbalized understanding of instructions. Ambulatory with steady gait. All questions addressed prior to discharge. ID band removed. Patient advised to follow up with PMD. Rx of NAPROXEN given. Patient educated on indication of medication including possible reaction and side effects. Opportunity to ask questions provided and answered.
== END 2021-07-27 14:56 | disposition home or self-care (01) ==
LOC: MED 12:46
DX: R60.9 Edema, unspecified (principal); E11.9 Type 2 diabetes mellitus without complications; Z98.890 Other specified postprocedural states
CPT/HCPCS: 82948; 99282

== ENCOUNTER 2021-07-29 22:35 | Emergency (ER) | payer MEDICAID ==
[~2021-07-29] VITALS: Ht 167.6 cm; Wt 81.6 kg
[~2021-07-29 22:35] MED LIST changes: +NAPR-1704 PO
[2021-07-29 22:55] VITALS: BP 162/92
--- NOTE | 2021-07-30 00:22 | NUR ---
pt taken to er bed 2
[2021-07-30] MEDS ORDERED: MORPHINE SULFATE 4 MG/ML SYR IVP ONE (00:30)
[2021-07-30] MEDS ORDERED: VANCOMYCIN 1,000 MG in DEXTROSE 5% 250 ML IV ONE (00:30)
[2021-07-30] MEDS ORDERED: NACL 0.9% 1,000 ML IV ONE (00:30)
[2021-07-30] MEDS ORDERED: PIPERACILLIN/TAZOBACTAM 3.375 GM in DEXTROSE 5% 50 ML IV ONE (00:30)
[2021-07-30] MEDS ORDERED: ONDANSETRON 4 MG/2 ML VIAL IVP ONE (00:30)
[2021-07-30] MEDS ORDERED: NEOMYCIN/POLYMYXIN/BACITRACIN 0.9 GM/1 PKT TP ONE (00:45)
--- NOTE | 2021-07-30 00:48 | NUR ---
Blood for labwork drawn from right arm per director of math. Patient tolerated well.
[2021-07-30 00:56] LABS: BASOPHILS % (AUTO) 0.2 % (0.0-2.0); EOSINOPHILS # (AUTO) 0.2 K/uL (0-0.4); EOSINOPHILS % (AUTO) 3.6 % (0.0-4.0); HEMATOCRIT 41.3 % (36-52); LYMPHOCYTES # (AUTO) 1.8 K/uL (2.0-11.5); LYMPHOCYTES % (AUTO) 27.4 % (20.5-51.1); MEAN CORPUSCULAR HEMOGLOBIN 28 pg (27-31); MEAN CORPUSCULAR HGB CONC 34 g/dL (33-37); MEAN CORPUSCULAR VOLUME 83.4 fL (80-94); MONOCYTES # (AUTO) 0.5 K/uL (0.8-1.0); MONOCYTES % (AUTO) 8.1 % (1.7-9.3); NEUTROPHILS % (AUTO) 60.7 % (42.2-75.2); PLATELET COUNT (AUTO) 266 K/uL (140-450); RED BLOOD CELL COUNT(AUTO) 4.95 MIL/uL (4.20-6.10); RED CELL DISTRIBUTION WIDTH 12.7 % (11.6-13.7); WHITE BLOOD COUNT (AUTO) 6.5 K/uL (4.8-10.8)
--- NOTE | 2021-07-30 00:58 | NUR ---
X-ray at bedside.
[2021-07-30 01:21] LABS: ALBUMIN 3.5 g/dL (3.4-5.0); ANION GAP 12.6 (8-16); CARBON DIOXIDE 26.9 mmol/L (21-32); CREATININE 1.4 mg/dL (0.6-1.3); POTASSIUM 4.5 mmol/L (3.5-5.1); TOTAL BILIRUBIN 0.3 mg/dL (0.0-1.0)
--- NOTE | 2021-07-30 01:37 | NUR ---
0136 - [facility] ARRIVED TO [facility] PT
--- NOTE | 2021-07-30 01:45 | NUR ---
Patient to be transferred to [facility]. Is being transferred due to [facility]. Receiving facility has accepting physician and available space. ER physician has signed transfer form. Patient or responsible democrat has agreed to transfer and signed form. Patient belongings inventoried and will be sent with patient. Copy of nursing notes, lab reports, EKG, Physicians Orders and X-rays to be sent with patient. Report called to at receiving facility. [facility] ambulance service has been called for transfer. ETA is [id number].
--- NOTE | 2021-07-30 01:45 | NUR ---
[facility]ELIPE LEAVING WITH PT TO [facility]
[2021-07-30 01:56] VITALS: BP 149/81
== END 2021-07-30 01:45 | disposition short-term general hospital (02) ==
LOC: MED 22:35
DX: T25.222A Burn of second degree of left foot, initial encounter (principal); E11.9 Type 2 diabetes mellitus without complications; Z79.1 Long term (current) use of non-steroidal anti-inflammatories (NSAID); Z79.899 Other long term (current) drug therapy; Z79.4 Long term (current) use of insulin; Z79.2 Long term (current) use of antibiotics; X11.8XXA Contact with other hot tap-water, initial encounter; Y93.89 Activity, other specified; Y92.89 Other specified places as the place of occurrence of the external cause; Y99.8 Other external cause status
CPT/HCPCS: 16020; 36415; 73610; 73630; 80053; 82550; 85025; 90471; 90715; 96360; 99285; Q0092; J2270; J2405; J7030

== ENCOUNTER 2023-01-09 09:20 | Emergency (ER) | payer OTHER ==
[~2023-01-09] VITALS: Ht 167.6 cm; Wt 81.6 kg
[~2023-01-09 09:20] MED LIST changes: +CEPH-588 PO; +HYDR-5191 PO; +IBUP-2218 PO
[2023-01-09 09:50] VITALS: BP 161/80; PULSE 89; RESP 18; TEMP 98; O2SAT 98
[2023-01-09] MEDS ORDERED: CEPH-588 PO (11:25)
[2023-01-09] MEDS ORDERED: SULF-59 PO (11:25)
[2023-01-09 12:16] VITALS: BP 140/72; PULSE 75; RESP 18; TEMP 98; O2SAT 98
== END 2023-01-09 12:17 | disposition home or self-care (01) ==
LOC: MED 09:20
DX: L03.116 Cellulitis of left lower limb (principal); E11.9 Type 2 diabetes mellitus without complications; Z79.4 Long term (current) use of insulin; Z79.899 Other long term (current) drug therapy
CPT/HCPCS: 73630; 82948; 90471; 90715; 99283; 99284

== ENCOUNTER 2023-01-12 10:30 | Inpatient (IN) | payer OTHER ==
[~2023-01-12] VITALS: Ht 165.1 cm; Wt 79.8 kg
[~2023-01-12 10:30] MED LIST changes: +SULF-59 PO
[2023-01-12 11:06] VITALS: BP 146/84; PULSE 93; RESP 18; TEMP 96.8; O2SAT 98
[2023-01-12] MEDS ORDERED: CEFEPIME 2,000 MG in DEXTROSE 5% 100 ML IV ONE (12:25)
[2023-01-12 13:04] LABS: BASOPHILS # (AUTO) 0.1 K/uL (0.00-0.22); BASOPHILS % (AUTO) 1.2 % (0.0-2.0); EOSINOPHILS # (AUTO) 0.2 K/uL (0-0.4); EOSINOPHILS % (AUTO) 2.1 % (0.0-4.0); HEMATOCRIT 38.6 % (36-52); LYMPHOCYTES # (AUTO) 0.9 K/uL (2.0-11.5); MEAN CORPUSCULAR HEMOGLOBIN 27 pg (27-31); MEAN CORPUSCULAR HGB CONC 34 g/dL (33-37); MEAN CORPUSCULAR VOLUME 80.2 fL (80-94); MONOCYTES # (AUTO) 0.7 K/uL (0.8-1.0); MONOCYTES % (AUTO) 6.3 % (1.7-9.3); NEUTROPHILS # (AUTO) 8.5 K/uL (1.8-7.7); NEUTROPHILS % (AUTO) 81.4 % (42.2-75.2); PLATELET COUNT (AUTO) 311 K/uL (140-450); RED BLOOD CELL COUNT(AUTO) 4.81 MIL/uL (4.20-6.10); WHITE BLOOD COUNT (AUTO) 10.4 K/uL (4.8-10.8)
[2023-01-12] MEDS ORDERED: CEFEPIME 2,000 MG VIAL IV ONE (13:31)
[2023-01-12 13:35] LABS: ALBUMIN 2.3 g/dL (3.4-5.0); ANION GAP 13.8 (8-16); CALCIUM 8.4 mg/dL (8.5-10.1); CARBON DIOXIDE 24.3 mmol/L (21-32); CREATININE 1.7 mg/dL (0.6-1.3); POTASSIUM 4.1 mmol/L (3.5-5.1); TOTAL BILIRUBIN 0.3 mg/dL (0.0-1.0); TOTAL PROTEIN, SERUM 7.5 g/dL (6.4-8.2)
[2023-01-12 13:38] LABS: LACTIC ACID 1.2 mmol/L (0.4-2.0)
[2023-01-12] MEDS ORDERED: ONDANSETRON 4 MG/2 ML VIAL IVP PRN (17:35)
[2023-01-12] MEDS ORDERED: ACETAMINOPHEN 325 MG TAB PO PRN (17:35)
[2023-01-12] MEDS ORDERED: MORPHINE SULFATE 2 MG/ML SYR IVP PRN (17:35)
[2023-01-12] MEDS ORDERED: LORazepam 2 MG/ML VIAL IVP PRN (17:35)
[2023-01-12] MEDS ORDERED: VANCOMYCIN PER PHARMACY MC PRN (17:40)
[2023-01-12] MEDS ORDERED: DEXTROSE 50% 50 ML SYR IVP PRN (17:40)
[2023-01-12] MEDS ORDERED: INSULIN LISPRO SLIDING SCALE 100 UNITS/ML VIAL SUBQ PRN (17:40)
[2023-01-12] MEDS ORDERED: VANCOMYCIN 1,000 MG in DEXTROSE 5% 250 ML IV SCH (17:55)
[2023-01-12] MEDS ORDERED: VANCOMYCIN 1,000 MG in NACL 0.9% 250 ML IV SCH (18:00)
[2023-01-12] MEDS ORDERED: VANCOMYCIN 1,000 MG VIAL ONE (18:22)
[2023-01-12] MEDS: NACL 0.9% 1,000 ML IV SCH (18:41)
[2023-01-12 21:10] VITALS: BP 145/90; PULSE 78; RESP 18; TEMP 98.3; O2SAT 98
[2023-01-12] MEDS ORDERED: cefTRIAXone 1,000 MG VIAL ONE (21:33)
[2023-01-12] MEDS: BLOOD GLUCOSE MONITORING 1 DEV DEV FS SCH (21:45)
[2023-01-12 21:48] VITALS: PULSE 78; RESP 18; O2SAT 98
[2023-01-13] MEDS: NACL 0.9% 1,000 ML IV SCH ×3 (03:35→22:57)
[2023-01-13 04:00] VITALS: BP 153/81; PULSE 79; RESP 18; TEMP 98.8; O2SAT 96
[2023-01-13 06:33] LABS: BASOPHILS # (AUTO) 0.2 K/uL (0.00-0.22); BASOPHILS % (AUTO) 1.8 % (0.0-2.0); EOSINOPHILS # (AUTO) 0.4 K/uL (0-0.4); EOSINOPHILS % (AUTO) 4.3 % (0.0-4.0); HEMATOCRIT 38.1 % (36-52); HEMOGLOBIN 12.6 g/dL (12.0-18.0); LYMPHOCYTES # (AUTO) 1.2 K/uL (2.0-11.5); LYMPHOCYTES % (AUTO) 14.3 % (20.5-51.1); MEAN CORPUSCULAR HEMOGLOBIN 27 pg (27-31); MEAN CORPUSCULAR HGB CONC 33 g/dL (33-37); MEAN CORPUSCULAR VOLUME 80.2 fL (80-94); MONOCYTES # (AUTO) 0.7 K/uL (0.8-1.0); MONOCYTES % (AUTO) 7.6 % (1.7-9.3); NEUTROPHILS # (AUTO) 6.3 K/uL (1.8-7.7); PLATELET COUNT (AUTO) 315 K/uL (140-450); RED BLOOD CELL COUNT(AUTO) 4.75 MIL/uL (4.20-6.10); RED CELL DISTRIBUTION WIDTH 15.1 % (11.6-13.7); WHITE BLOOD COUNT (AUTO) 8.7 K/uL (4.8-10.8)
[2023-01-13 06:39] LABS: ANION GAP 13.8 (8-16); CARBON DIOXIDE 23.3 mmol/L (21-32); CREATININE 1.3 mg/dL (0.6-1.3); POTASSIUM 4.1 mmol/L (3.5-5.1)
[2023-01-13] MEDS: BLOOD GLUCOSE MONITORING 1 DEV DEV FS SCH ×4 (06:39→20:05)
[2023-01-13 08:00] VITALS: BP 156/83; PULSE 82; RESP 17; TEMP 98.4; O2SAT 97
[2023-01-13] MEDS: VANCOMYCIN 1.25GM PREMIX 250 ML IV SCH (12:39)
[2023-01-13 19:56] VITALS: BP 151/82; PULSE 72; RESP 16; TEMP 98.2; O2SAT 98
[2023-01-13 20:00] VITALS: PULSE 72; RESP 16; O2SAT 98
[2023-01-14 04:00] VITALS: BP 150/85; PULSE 73; RESP 16; TEMP 97.4; O2SAT 98
[2023-01-14] MEDS: VANCOMYCIN 1.25GM PREMIX 250 ML IV SCH ×2 (05:46→23:47)
[2023-01-14] MEDS: BLOOD GLUCOSE MONITORING 1 DEV DEV FS SCH ×4 (06:30→21:06)
[2023-01-14 07:12] LABS: ANION GAP 13.9 (8-16); CALCIUM 7.9 mg/dL (8.5-10.1); CARBON DIOXIDE 21.1 mmol/L (21-32); CREATININE 1.2 mg/dL (0.6-1.3)
[2023-01-14 08:00] VITALS: BP 147/78; PULSE 72; RESP 18; TEMP 98.5; O2SAT 98
[2023-01-14] MEDS: NACL 0.9% 1,000 ML IV SCH ×2 (09:35→13:48)
[2023-01-14 20:00] VITALS: BP 179/84; PULSE 69; RESP 18; TEMP 97.3; O2SAT 100
[2023-01-15] MEDS: hydrALAZINE 25 MG TAB PO PRN ×4 (01:16→23:37)
[2023-01-15] MEDS: NACL 0.9% 1,000 ML IV SCH ×3 (02:30→15:35)
[2023-01-15 04:00] VITALS: BP 165/83; PULSE 75; RESP 18; TEMP 97.5; O2SAT 96
[2023-01-15] MEDS: BLOOD GLUCOSE MONITORING 1 DEV DEV FS SCH ×4 (06:37→20:15)
[2023-01-15 06:50] LABS: ANION GAP 13.3 (8-16); CALCIUM 7.8 mg/dL (8.5-10.1); CARBON DIOXIDE 21.8 mmol/L (21-32); CREATININE 1.1 mg/dL (0.6-1.3); POTASSIUM 4.1 mmol/L (3.5-5.1)
[2023-01-15 08:00] VITALS: BP 167/88; PULSE 60; PULSE 70; RESP 17; TEMP 97.8; O2SAT 97; O2SAT 98
[2023-01-15 11:11] VITALS: O2SAT 96
[2023-01-15 13:07] LABS: BASOPHILS # (AUTO) 0.1 K/uL (0.00-0.22); BASOPHILS % (AUTO) 1.7 % (0.0-2.0); EOSINOPHILS # (AUTO) 0.4 K/uL (0-0.4); EOSINOPHILS % (AUTO) 5.1 % (0.0-4.0); HEMATOCRIT 37.4 % (36-52); HEMOGLOBIN 12.2 g/dL (12.0-18.0); LYMPHOCYTES # (AUTO) 1.5 K/uL (2.0-11.5); LYMPHOCYTES % (AUTO) 20.6 % (20.5-51.1); MEAN CORPUSCULAR HEMOGLOBIN 26 pg (27-31); MEAN CORPUSCULAR HGB CONC 33 g/dL (33-37); MEAN CORPUSCULAR VOLUME 80.8 fL (80-94); MONOCYTES # (AUTO) 0.5 K/uL (0.8-1.0); MONOCYTES % (AUTO) 6.8 % (1.7-9.3); NEUTROPHILS # (AUTO) 4.7 K/uL (1.8-7.7); NEUTROPHILS % (AUTO) 65.8 % (42.2-75.2); PLATELET COUNT (AUTO) 342 K/uL (140-450); RED BLOOD CELL COUNT(AUTO) 4.62 MIL/uL (4.20-6.10); RED CELL DISTRIBUTION WIDTH 14.8 % (11.6-13.7); WHITE BLOOD COUNT (AUTO) 7.1 K/uL (4.8-10.8)
[2023-01-15] MEDS ORDERED: HYDROCOLLOID DRESSING TP PRN (13:30)
[2023-01-15] MEDS ORDERED: ALGINATE ROPE MC PRN (13:30)
[2023-01-15] MEDS: VANCOMYCIN 1.25GM PREMIX 250 ML IV SCH (17:31)
[2023-01-15 20:00] VITALS: BP 171/90; PULSE 72; RESP 17; TEMP 97.5; O2SAT 98
[2023-01-16] MEDS: NACL 0.9% 1,000 ML IV SCH ×2 (01:54→11:26)
[2023-01-16 04:00] VITALS: BP 167/78; PULSE 71; RESP 15; TEMP 97.3; O2SAT 94
[2023-01-16] MEDS ORDERED: CEFEPIME 1,000 MG VIAL ONE (05:11)
[2023-01-16] MEDS: CEFEPIME 2,000 MG in DEXTROSE 5% 100 ML IV SCH ×2 (05:31→13:47)
[2023-01-16] MEDS: BLOOD GLUCOSE MONITORING 1 DEV DEV FS SCH ×3 (06:52→17:05)
[2023-01-16 07:24] LABS: ANION GAP 13.3 (8-16); CALCIUM 7.7 mg/dL (8.5-10.1); CARBON DIOXIDE 20.6 mmol/L (21-32); CREATININE 1.1 mg/dL (0.6-1.3); POTASSIUM 3.9 mmol/L (3.5-5.1)
[2023-01-16 07:59] VITALS: PULSE 68; RESP 18; O2SAT 99
[2023-01-16 08:00] VITALS: BP 136/68; PULSE 75; RESP 18; TEMP 97; O2SAT 94
[2023-01-16] MEDS: VANCOMYCIN 1.25GM PREMIX 250 ML IV SCH (11:25)
[2023-01-16] MEDS ORDERED: LINE600T4 PO (12:19)
[2023-01-16] MEDS ORDERED: HYDR-5043 PO (12:19)
[2023-01-16] MEDS ORDERED: CEPH-588 PO (12:19)
[2023-01-16] MEDS ORDERED: ALGINATE ROPE MC SCH (13:00)
[2023-01-16 16:00] VITALS: BP 142/73; PULSE 68; RESP 19; TEMP 97.3; O2SAT 94
[2023-01-16] MEDS: hydrALAZINE 25 MG TAB PO PRN (16:24)
[2023-01-18] MEDS ORDERED: HYDROCOLLOID DRESSING TP SCH (13:00)
== END 2023-01-16 20:50 | disposition home or self-care (01) | DRG 317 ==
LOC: MED 10:30 → MMU 19:42 → OBSVTOIN 19:43 → MTU 20:35
PROVIDERS: ADMIT Hospitalist; ATTEND Hospitalist
PROC: 0J9R0ZZ Drainage of Left Foot Subcutaneous Tissue and Fascia, Open Approach (ICD-10-PCS; principal; 2023-01-13)
DX: E11.621 Type 2 diabetes mellitus with foot ulcer (principal); M86.8X7 Other osteomyelitis, ankle and foot; N17.0 Acute kidney failure with tubular necrosis; E43 Unspecified severe protein-calorie malnutrition; S91.332A Puncture wound without foreign body, left foot, initial encounter; L03.116 Cellulitis of left lower limb; E11.51 Type 2 diabetes mellitus with diabetic peripheral angiopathy without gangrene; D72.829 Elevated white blood cell count, unspecified; E11.69 Type 2 diabetes mellitus with other specified complication; X58.XXXA Exposure to other specified factors, initial encounter; Z89.611 Acquired absence of right leg above knee; Z79.4 Long term (current) use of insulin; Z82.49 Family history of ischemic heart disease and other diseases of the circulatory system; Z83.3 Family history of diabetes mellitus; Z89.511 Acquired absence of right leg below knee; Y93.89 Activity, other specified; Y92.89 Other specified places as the place of occurrence of the external cause; Y99.8 Other external cause status; Z68.29 Body mass index [BMI] 29.0-29.9, adult
CPT/HCPCS: 36415; 73630; 73701; 78315; 80048; 80053; 80202; 82948; 83036; 83605; 83735; 85025; 87040; 87070; 87075; 87081; 87186; 87205; 96365; 96375; 99285; J0690; J0692; J0696; J1815; J3370; J3372; J7060; Q9967

== ENCOUNTER 2023-01-18 08:02 | Observation (INO) | payer OTHER ==
[2023-01-18] VITALS (7 sets, daily range): BP systolic 136–154; BP diastolic 78–80; PULSE 76–79; RESP 16; TEMP 97.6–98.1; O2SAT 99
[~2023-01-18] VITALS: Ht 162.6 cm; Wt 79.8 kg
[~2023-01-18 08:02] MED LIST changes: -AMOX-999 PO; -CLIN300C2 PO; +HYDR-5043 PO; -HYDR-5191 PO; -IBUP-2218 PO; -INSU100S22 SUBQ; +LINE600T4 PO; -NAPR-1704 PO; -POTA10TA70 PO; -SULF-59 PO
[2023-01-18] MEDS ORDERED: HYDROcodone/APAP 5/325 MG 1 TAB TAB PO PRN (09:55)
[2023-01-18] MEDS ORDERED: KCL 20 MEQ IN 100 mL PREMIX 200 ML IV PRN (09:55)
[2023-01-18] MEDS ORDERED: MORPHINE SULFATE 4 MG/ML SYR IVP PRN (09:55)
[2023-01-18] MEDS ORDERED: ZOLPIDEM 5 MG TAB PO PRN (09:55)
[2023-01-18] MEDS ORDERED: POTASSIUM CHLORIDE 10 MEQ TABER PO PRN (09:55)
[2023-01-18] MEDS ORDERED: ONDANSETRON 4 MG/2 ML VIAL IVP PRN (09:55)
[2023-01-18] MEDS ORDERED: ACETAMINOPHEN 325 MG TAB PO PRN (09:55)
[2023-01-18] MEDS ORDERED: MAG SULF 2000 MG/WATER PREMIX 50 ML IV PRN (09:55)
[2023-01-18] MEDS ORDERED: LORazepam 1 MG TAB PO PRN (09:55)
[2023-01-18 10:51] LABS: BASOPHILS # (AUTO) 0.1 K/uL (0.00-0.22); BASOPHILS % (AUTO) 1.2 % (0.0-2.0); EOSINOPHILS # (AUTO) 0.3 K/uL (0-0.4); EOSINOPHILS % (AUTO) 2.9 % (0.0-4.0); HEMATOCRIT 40.8 % (36-52); HEMOGLOBIN 13.5 g/dL (12.0-18.0); LYMPHOCYTES # (AUTO) 1.2 K/uL (2.0-11.5); LYMPHOCYTES % (AUTO) 13.5 % (20.5-51.1); MEAN CORPUSCULAR HEMOGLOBIN 27 pg (27-31); MEAN CORPUSCULAR HGB CONC 33 g/dL (33-37); MONOCYTES # (AUTO) 0.5 K/uL (0.8-1.0); MONOCYTES % (AUTO) 5.7 % (1.7-9.3); NEUTROPHILS # (AUTO) 6.9 K/uL (1.8-7.7); NEUTROPHILS % (AUTO) 76.7 % (42.2-75.2); PLATELET COUNT (AUTO) 412 K/uL (140-450); RED CELL DISTRIBUTION WIDTH 15.1 % (11.6-13.7)
[2023-01-18 11:03] LABS: ALBUMIN 2.7 g/dL (3.4-5.0); ANION GAP 13.9 (8-16); CALCIUM 8.4 mg/dL (8.5-10.1); CARBON DIOXIDE 24.3 mmol/L (21-32); CREATININE 1.4 mg/dL (0.6-1.3); POTASSIUM 4.2 mmol/L (3.5-5.1); TOTAL BILIRUBIN 0.2 mg/dL (0.0-1.0); TOTAL PROTEIN, SERUM 8.3 g/dL (6.4-8.2)
[2023-01-18] MEDS ORDERED: NACL 0.9% 1,000 ML IV SCH (12:00)
[2023-01-18] MEDS ORDERED: INSULIN LISPRO SLIDING SCALE 100 UNITS/ML VIAL SUBQ PRN (13:50)
[2023-01-18] MEDS ORDERED: DEXTROSE 50% 50 ML SYR IVP PRN (13:50)
[2023-01-18] MEDS ORDERED: BLOOD GLUCOSE MONITORING 1 DEV DEV FS SCH (16:30)
[2023-01-19] MEDS ORDERED: ENOXAPARIN 40 MG/0.4 ML SYR SUBQ SCH (09:00)
== END 2023-01-18 16:10 | disposition home or self-care (01) ==
LOC: MED 08:02 → MMU 09:54
PROVIDERS: ADMIT Internal Medicine; ATTEND Internal Medicine
DX: M86.8X8 Other osteomyelitis, other site (principal); I12.9 Hypertensive chronic kidney disease with stage 1 through stage 4 chronic kidney disease, or unspecified chronic kidney disease; E11.22 Type 2 diabetes mellitus with diabetic chronic kidney disease; N18.9 Chronic kidney disease, unspecified; E43 Unspecified severe protein-calorie malnutrition; Z89.511 Acquired absence of right leg below knee; Z79.899 Other long term (current) drug therapy
CPT/HCPCS: 36415; 71045; 80053; 85025; 96361; 96365; 96366; 99285; G0378; J0690; J1815; J7060